=== PATIENT | female | born 1950 | race Caucasian/White ===

== ENCOUNTER → 2017-01-03 | Outpatient (CLI) | payer MEDICARE, OTHER | END | disposition home or self-care (01) | LOC: LABWHC1 15:23 | PROVIDERS: ATTEND Internal Medicine Interventional Cardiology | DX: E03.9 Hypothyroidism, unspecified (principal); I25.10 Atherosclerotic heart disease of native coronary artery without angina pectoris | CPT/HCPCS: 36415; 84439; 84443 ==

== ENCOUNTER 2018-12-10 14:25 | Observation (INO) | payer MEDICARE, OTHER ==
--- NOTE | 2018-12-10 15:19 | ED ---
General Adult HPI - General Chief complaint: Chest Pain Stated complaint: upper back heaviness,HAD chest pain into right arm Time Seen by Provider: 12/10/18 15:07 Source: patient, RN notes reviewed, old records reviewed Mode of arrival: wheelchair Limitations: no limitations - History of Present Illness Initial comments: 60-year-old female presented for evaluation of chest pain. Patient has no pain with time my evaluation. She had an episode of chest pain that began as right sided, travel into her right axilla and ultimately into the patient's back. She has history of CAD, status post bypass as well as multiple stents. She denies any diaphoresis, denies nausea. She had only mild left-sided chest pain , no central chest pain, no symptoms in her jaw, no symptoms in her left arm. She is pain-free at the time my evaluation. No history of aneurysm, no history of DVT or PE. She does report some mild dyspnea with exertion over the past several weeks. No fever or chills. No cough. - Related Data Home Medications Medication Instructions Recorded Confirmed Glimepiride [Amaryl] 4 mg PO QAM 03/08/16 12/10/18 Aspirin [[place] Aspirin EC] 81 mg PO BID 12/10/18 12/10/18 Atorvastatin [Lipitor] 40 mg PO HS 12/10/18 12/10/18 Glimepiride [Amaryl] 2 mg PO HS 12/10/18 12/10/18 Latanoprost/Pf [Latanoprost 0.005% 1 drop BOTH EYES HS 12/10/18 12/10/18 Eye Drop] Levothyroxine Sodium [Synthroid] 25 mcg PO QAM 12/10/18 12/10/18 Losartan Potassium [Cozaar] 25 mg PO HS 12/10/18 12/10/18 Allergies Allergy/AdvReac Type Severity Reaction Status Date / Time codeine Allergy "felt like Verified 12/10/18 15:39 I was having a heart attack" diphenhydramine HCl Allergy "my feet Verified 12/10/18 15:39 [From Benadryl] were running, and hands digging during heart cath" Penicillins Allergy Swelling/hi Verified 12/10/18 15:39 ves Fcgzhmw-Boj-Baf Reductase AdvReac muscle pain Verified 12/10/18 15:39 Inhibitor silk surgical tape Allergy blisters Uncoded 03/11/16 15:11 skin Review of Systems ROS Statement: Those systems with pertinent positive or pertinent negative responses have been documented in the HPI. ROS Other: All systems not noted in ROS Statement are negative. Past Medical History Past Medical History: Coronary Artery Disease (CAD), Diabetes Mellitus, Hyperlipidemia, Hypertension Additional Past Medical History / Comment(s): healing rt groin puncture, "blisters labia area thinks herpes",poor vision rt eye-receives injection monthly to reduce swelling around cornea,states is unable to tolerate statins, HX OF ALOPECIA History of Any Multi-Drug Resistant Organisms: None Reported Past Surgical History: Appendectomy, Bariatric Surgery, Cholecystectomy, Heart Catheterization With Stent, Hysterectomy, Tonsillectomy Additional Past Surgical History / Comment(s): gastric bypass,stents x4,susie eye surgery. PT STATES ON ADMISSION TO [facility] THAT HER LEFT FOOT HAS BEEN SORE ON THE LATERAL ASPECT; NO BRUISING OR REDDNESS. Past Anesthesia/Blood Transfusion Reactions: Previous Problems w/ Anesthesia Additional Past Anesthesia/Blood Transfusion Reaction / Comment(s): took along time to come out of bariatric surgery Date of Last Stent Placement:: 2005? Past Psychological History: Anxiety Smoking Status: Never smoker Past Alcohol Use History: None Reported Past Drug Use History: None Reported - Past Family History Father Family Medical History: Cancer, Myocardial Infarction ([place]) Additional Family Medical History / Comment(s): CABG Mother Family Medical History: No Reported History Brother(s) Family Medical History: Myocardial Infarction ([place]) Additional Family Medical History / Comment(s): [place] in early 40's, states "heart functioning at 20%" General Exam Limitations: no limitations General appearance: alert, in no apparent distress Head exam: Present: atraumatic, normocephalic Eye exam: Present: normal appearance, PERRL ENT exam: Present: normal exam Neck exam: Present: normal inspection. Absent: tenderness, meningismus Respiratory exam: Present: normal lung sounds bilaterally. Absent: respiratory distress, wheezes Cardiovascular Exam: Present: regular rate, normal rhythm, systolic murmur GI/Abdominal exam: Present: soft. Absent: distended, tenderness Extremities exam: Present: normal inspection, normal capillary refill. Absent: pedal edema Neurological exam: Present: alert, oriented X3, CN II-XII intact. Absent: motor sensory deficit Psychiatric exam: Present: normal affect, normal mood Skin exam: Present: warm, dry, intact. Absent: cyanosis, diaphoretic Course Vital Signs 12/10/18 14:32 Temperature 98 F Pulse Rate 64 Respiratory 18 Rate Blood Pressure 178/81 O2 Sat by Pulse 100 Oximetry EKG Findings - EKG Comments: EKG Findings:: EKG: Normal sinus rhythm, rate of 68, MS interval 178, QRS duration 94, QTC 442, T-wave inversion inferior leads, no ST segment elevation Medical Decision Making - Medical Decision Making 68-year-old female presenting with chest pain, predominantly right-sided, she did have mild left-sided chest pain as well. Radiated to the right axilla. Patient chest pain-free at the time my evaluation. She has EKG with no ST segment elevation or depression. Chest x-ray negative for pneumothorax, no acute cardiopulmonary findings. Normal CBC, normal CMP, creatinine 1.1, troponin negative. Patient will be kept in observation for telemetry, repeat cardiac enzymes, and cardiology consultation. Discussed with admitting physician, who will accept - Lab Data Result diagrams: 12/10/18 14:59 12/10/18 14:59 Lab Results 12/10/18 12/10/18 12/10/18 Range/Units 14:59 14:59 14:59 WBC 6.1 (3.8-10.6) k/uL RBC 4.56 (3.80-5.40) m/uL Hgb 13.3 (11.4-16.0) gm/dL Hct 40.5 (34.0-46.0) % MCV 88.8 (80.0-100.0) fL MCH 29.2 (25.0-35.0) pg MCHC 32.9 (31.0-37.0) g/dL RDW 14.1 (11.5-15.5) % Plt Count 208 (150-450) k/uL Neutrophils % 69 % Lymphocytes % 21 % Monocytes % 5 % Eosinophils % 3 % Basophils % 1 % Neutrophils # 4.2 (1.3-7.7) k/uL Lymphocytes # 1.3 (1.0-4.8) k/uL Monocytes # 0.3 (0-1.0) k/uL Eosinophils # 0.2 (0-0.7) k/uL Basophils # 0.0 (0-0.2) k/uL PT (9.0-12.0) sec INR (<1.2) APTT (22.0-30.0) sec Sodium 141 (137-145) mmol/L Potassium 5.1 (3.5-5.1) mmol/L Chloride 105 (98-107) mmol/L Carbon Dioxide 30 (22-30) mmol/L Anion Gap 6 mmol/L BUN 30 H (7-17) mg/dL Creatinine 1.10 H (0.52-1.04) mg/dL Est GFR (CKD-EPI)AfAm 60 (>60 ml/min/1.73 sqM) Est GFR (CKD-EPI)NonAf 52 (>60 ml/min/1.73 sqM) Glucose 209 H (74-99) mg/dL Calcium 9.4 (8.4-10.2) mg/dL Magnesium 1.8 (1.6-2.3) mg/dL Total Bilirubin 0.5 (0.2-1.3) mg/dL AST 19 (14-36) U/L ALT 35 (9-52) U/L Alkaline Phosphatase 122 (38-126) U/L Total Creatine Kinase 30 (30-135) U/L CK-MB (CK-2) <0.2 (0.0-2.4) ng/mL CK-MB (CK-2) Rel Index Troponin I <0.012 (0.000-0.034) ng/mL NT-Pro-B Natriuret Pep pg/mL Total Protein 6.8 (6.3-8.2) g/dL Albumin 3.8 (3.5-5.0) g/dL 12/10/18 12/10/18 Range/Units 14:59 14:59 WBC (3.8-10.6) k/uL RBC (3.80-5.40) m/uL Hgb (11.4-16.0) gm/dL Hct (34.0-46.0) % MCV (80.0-100.0) fL MCH (25.0-35.0) pg MCHC (31.0-37.0) g/dL RDW (11.5-15.5) % Plt Count (150-450) k/uL Neutrophils % % Lymphocytes % % Monocytes % % Eosinophils % % Basophils % % Neutrophils # (1.3-7.7) k/uL Lymphocytes # (1.0-4.8) k/uL Monocytes # (0-1.0) k/uL Eosinophils # (0-0.7) k/uL Basophils # (0-0.2) k/uL PT 10.3 (9.0-12.0) sec INR 1.0 (<1.2) APTT 23.3 (22.0-30.0) sec Sodium (137-145) mmol/L Potassium (3.5-5.1) mmol/L Chloride (98-107) mmol/L Carbon Dioxide (22-30) mmol/L Anion Gap mmol/L BUN (7-17) mg/dL Creatinine (0.52-1.04) mg/dL Est GFR (CKD-EPI)AfAm (>60 ml/min/1.73 sqM) Est GFR (CKD-EPI)NonAf (>60 ml/min/1.73 sqM) Glucose (74-99) mg/dL Calcium (8.4-10.2) mg/dL Magnesium (1.6-2.3) mg/dL Total Bilirubin (0.2-1.3) mg/dL AST (14-36) U/L ALT (9-52) U/L Alkaline Phosphatase (38-126) U/L Total Creatine Kinase (30-135) U/L CK-MB (CK-2) (0.0-2.4) ng/mL CK-MB (CK-2) Rel Index Troponin I (0.000-0.034) ng/mL NT-Pro-B Natriuret Pep 70 pg/mL Total Protein (6.3-8.2) g/dL Albumin (3.5-5.0) g/dL Disposition Clinical Impression: Chest pain Disposition: ADMITTED IP TO THIS [facility] Condition: Stable Is patient prescribed a controlled substance at d/c from ED?: No Referrals: Trung Hatch DO [Primary Care Provider] - 1-2 days Decision to Admit Reason: Admit from EC Decision Date: 12/10/18 Decision Time: 16:45
[2018-12-10 15:37] LABS: Basophils % (A) 1 %; Eosinophils # (A) 0.2 k/uL (0-0.7); Eosinophils % (A) 3 %; HCT 40.5 % (34.0-46.0); HGB 13.3 gm/dL (11.4-16.0); Lymphocytes # (A) 1.3 k/uL (1.0-4.8); Lymphocytes % (A) 21 %; MCH 29.2 pg (25.0-35.0); MCHC 32.9 g/dL (31.0-37.0); MCV 88.8 fL (80.0-100.0); Mean Platelet Volume 8.5; Monocytes # (A) 0.3 k/uL (0-1.0); Monocytes % (A) 5 %; Neutrophils # (A) 4.2 k/uL (1.3-7.7); Neutrophils % (A) 69 %; Platelet Count 208 k/uL (150-450); RBC 4.56 m/uL (3.80-5.40); RDW 14.1 % (11.5-15.5); WBC 6.1 k/uL (3.8-10.6)
[2018-12-10 15:44] LABS: Partial Thromboplastin Time 23.3 sec (22.0-30.0); Prothrombin Time 10.3 sec (9.0-12.0)
[2018-12-10 15:49] LABS: Albumin 3.8 g/dL (3.5-5.0); Calcium 9.4 mg/dL (8.4-10.2); Magnesium 1.8 mg/dL (1.6-2.3); Potassium 5.1 mmol/L (3.5-5.1); Total Bilirubin 0.5 mg/dL (0.2-1.3); Total Protein 6.8 g/dL (6.3-8.2)
[2018-12-10 16:02] LABS: Creatine Kinase 30 U/L (30-135)
--- NOTE | 2018-12-10 16:04 | XR ---
EXAMINATION TYPE: XR chest 2V DATE OF EXAM: 12/10/2018 COMPARISON: 03/19/2016 HISTORY: Shortness of breath TECHNIQUE: Frontal and lateral views of the chest are obtained. FINDINGS: Scattered senescent parenchymal changes noted. Hyperinflation compatible with COPD. No evidence for infiltrate. No evidence for atelectasis. Heart size is stable. Mediastinal structures are stable and grossly unremarkable. No evidence for hilar prominence. Degenerative changes dorsal spine. IMPRESSION: 1. No evidence for acute pulmonary disease.
[2018-12-10 16:15] LABS: Creatine Kinase MB <0.2 ng/mL (0.0-2.4); Troponin I <0.012 ng/mL (0.000-0.034)
[2018-12-10] MEDS ORDERED: SODIUM CHLORIDE 0.9% 500 ML 500 ML IV ONE (16:35)
[2018-12-10] MEDS ORDERED: LOSARTAN 50 MG TAB PO STA (16:35)
[2018-12-10] MEDS ORDERED: ASPIRIN 325 MG TAB PO STA (16:35)
[2018-12-10] MEDS ORDERED: ONDANSETRON 4 MG/2 ML VIAL IVP PRN (16:41)
[2018-12-10] MEDS ORDERED: NALOXONE 0.4 MG/ML 1 ML VIAL IV PRN (16:41)
[2018-12-10] MEDS ORDERED: NITROGLYCERIN SL TABS 0.4 MG TAB SUBLINGUAL PRN (16:43)
[2018-12-10] MEDS ORDERED: ACETAMINOPHEN TAB 325 MG TAB PO PRN (17:36)
[2018-12-10] MEDS ORDERED: HYDROcodone/APAP 5-325MG 1 EACH TAB PO PRN (17:36)
[2018-12-10] MEDS ORDERED: MORPHINE SULFATE 2 MG/ML SYRINGE IV PRN (17:36)
--- NOTE | 2018-12-10 18:07 | P.HPIM ---
History of Present Illness H&P Date: 12/10/18 Chief Complaint: Chest pain 60-year-old female with PMH of CAD status post CABG in 2016, multiple stents placed, diabetes mellitus, hypertension presents to the ED for chest pain. Patient states that she was attempting to hang a calendar on the wall when she experienced sudden onset of right-sided chest pain. Patient reports that the pain radiated to the crease of her right armpit. The pain lasted for 20 seconds , described as sharp and stabbing. Following the resolution of her chest pain, patient endorsed twinges in her right arm and started experiencing "cold ache" in her back, prompting her to come to the ED. Pain is 8 out of 10 in severity. Pain is not aggravated with deep inspiration or movement. Patient reports one episode of dyspnea, when singing happy birthday to her sister on the way to the hospital. 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 WHIT Ovalle. She has previously underwent 3-4 stents and CABG in 2016. She denies any nausea, vomiting, fever, palpitations, changes in urination. No changes in appetite or weight. Of note, patient reports history of constipation, last bowel movement 4 days ago. Patient does report intermittent lower extremity edema, at the site where they stripped her veins for CABG. In the ED, vital signs are stable. CBC and coagulation panel was unremarkable. CMP showed a BUN of 30 and creatinine of 1.10. Glucose was 209. Initial troponin was less than 0.012, EKG showed normal sinus rhythm. BNP was 70. Chest x-ray was negative for acute process. Patient is admitted for chest pain , rule out acute coronary syndrome. Cardiology is on consult. Review of Systems All systems: negative Past Medical History Past Medical History: Coronary Artery Disease (CAD), Diabetes Mellitus, Hyperlipidemia, Hypertension Additional Past Medical History / Comment(s): healing rt groin puncture, "blisters labia area thinks herpes",poor vision rt eye-receives injection monthly to reduce swelling around cornea,states is unable to tolerate statins, HX OF ALOPECIA History of Any Multi-Drug Resistant Organisms: None Reported Past Surgical History: Appendectomy, Bariatric Surgery, Cholecystectomy, Heart Catheterization With Stent, Hysterectomy, Tonsillectomy Additional Past Surgical History / Comment(s): gastric bypass,stents x4,susie eye surgery. PT STATES ON ADMISSION TO PREOP THAT HER LEFT FOOT HAS BEEN SORE ON THE LATERAL ASPECT; NO BRUISING OR REDDNESS. Past Anesthesia/Blood Transfusion Reactions: Previous Problems w/ Anesthesia Additional Past Anesthesia/Blood Transfusion Reaction / Comment(s): took along time to come out of bariatric surgery Date of Last Stent Placement:: 2005? Past Psychological History: Anxiety Smoking Status: Never smoker Past Alcohol Use History: None Reported Past Drug Use History: None Reported - Past Family History Father Family Medical History: Cancer, Myocardial Infarction ([place]) Additional Family Medical History / Comment(s): CABG Mother Family Medical History: No Reported History Brother(s) Family Medical History: Myocardial Infarction ([place]) Additional Family Medical History / Comment(s): [place] in early 40's, states "heart functioning at 20%" Medications and Allergies Home Medications Medication Instructions Recorded Confirmed Type Glimepiride [Amaryl] 4 mg PO QAM 03/08/16 12/10/18 History Aspirin [[place] Aspirin EC] 81 mg PO BID 12/10/18 12/10/18 History Atorvastatin [Lipitor] 40 mg PO HS 12/10/18 12/10/18 History Glimepiride [Amaryl] 2 mg PO HS 12/10/18 12/10/18 History Latanoprost/Pf [Latanoprost 0.005% 1 drop BOTH EYES HS 12/10/18 12/10/18 History Eye Drop] Levothyroxine Sodium [Synthroid] 25 mcg PO QAM 12/10/18 12/10/18 History Losartan Potassium [Cozaar] 25 mg PO HS 12/10/18 12/10/18 History Allergies Allergy/AdvReac Type Severity Reaction Status Date / Time codeine Allergy "felt like Verified 12/10/18 15:39 I was having a heart attack" diphenhydramine HCl Allergy "my feet Verified 12/10/18 15:39 [From Benadryl] were running, and hands digging during heart cath" Penicillins Allergy Swelling/hi Verified 12/10/18 15:39 ves Tzwuknv-Vcd-Dmo Reductase AdvReac muscle pain Verified 12/10/18 15:39 Inhibitor silk surgical tape Allergy blisters Uncoded 03/11/16 15:11 skin Physical Exam Vitals: Vital Signs Temp Pulse Resp BP Pulse Ox 12/10/18 14:32 98 F 64 18 178/81 100 Intake and Output 12/10/18 12/10/18 12/10/18 06:59 14:59 22:59 Other: Weight 99.337 kg General: [non toxic], [no distress], [appears at stated age] Derm: [warm], [dry] Head: [atraumatic], [normocephalic], [symmetric] Eyes: [EOMI], [no lid lag], [anicteric sclera] Mouth: [no lip lesion], [mucus membranes moist] Cardiovascular: [S1S2 reg], [no murmur], [positive posterior tibial pulse bilateral], [nontender to palpation] Lungs: [CTA bilateral], [no rhonchi, no rales] , [no accessory muscle use] Abdominal: [soft], [ nontender to palpation], [no guarding], [no appreciable organomegaly] Ext: [no gross muscle atrophy], [no edema], [no contractures] Neuro: [no focal neuro deficits] Psych: [Alert], [oriented], [appropriate affect] Results CBC & Chem 7: 12/10/18 14:59 12/10/18 14:59 Labs: Abnormal Lab Results - Last 24 Hours (Table) 12/10/18 Range/Units 14:59 BUN 30 H (7-17) mg/dL Creatinine 1.10 H (0.52-1.04) mg/dL Glucose 209 H (74-99) mg/dL Thrombosis Risk Factor Assmnt - Choose All That Apply Any of the Below Risk Factors Present?: Yes Each Factor Represents 1 point: Obesity (BMI >25) Other Risk Factors: Yes Each Risk Factor Represents 2 Points: Age 61-74 years Thrombosis Risk Factor Assessment Total Risk Factor Score: 3 Thrombosis Risk Factor Assessment Level: Moderate Risk Assessment and Plan Assessment: Assessment and Plan 1. Chest pain likely musculoskeletal, rule out acute coronary syndrome 2. Diabetes mellitus 3. CAD status post CABG 4. Hypertension 5. Elevated BUN and creatinine 6. Hypothyroidism 7. DVT and GI prophylaxis 1. Patient reported previous tenderness to palpation, likely musculoskeletal in nature but patient with risk factors for ACS. Troponin is less than 0.01, EKG showing normal sinus rhythm. Chest x-ray is negative for acute process. We will trend 2 troponins and EKG to rule out acute coronary syndrome. Will follow echocardiogram results. Cardiology consulted. Pain management with Tylenol, Naubinway or morphine as needed. Nitrostat sublingual as needed for chest pain. Continue aspirin 325 mg by mouth daily, Lipitor 40 mg by mouth at bedtime. Telemetry monitoring. 2. Noscz-ay-pcpt glucose 209. Insulin sliding scale. Regular Accu-Cheks. Hypoglycemic precautions. 3. Continue aspirin and Lipitor. Patient reports beta jeannette and HAWK inhibitor discontinued by cardiology. Will follow cardiology recommendations. 4. BP 178/81. Continue losartan 25 mg by mouth at bedtime. Monitor vitals, adjust medications as necessary. 5. BUN 30, creatinine 1.10. Likely secondary to dehydration. Continue normal saline at 70 mL per hour. Daily BMP. 6. Stable. Continue Synthroid 25 g by mouth every morning. 7. SCD boots only. Patient admitted for chest pain, rule out acute coronary syndrome. Cardiology is on consult. Patient is high risk. Possible discharge tomorrow if workup benign.
[2018-12-10] MEDS ORDERED: LOSARTAN 25 MG TAB PO SCH (21:00)
[2018-12-10] MEDS ORDERED: GLIMEPIRIDE 2 MG TAB PO SCH (21:00)
[2018-12-10 22:11] LABS: Creatine Kinase 32 U/L (30-135)
[2018-12-10 22:24] LABS: Creatine Kinase MB <0.2 ng/mL (0.0-2.4); Troponin I <0.012 ng/mL (0.000-0.034)
[2018-12-10] MEDS: SODIUM CHLORIDE 0.9% 1,000 ML IV SCH (22:42)
[2018-12-10] MEDS: ATORVASTATIN 40 MG TAB PO SCH (22:42)
[2018-12-10] MEDS: ASPIRIN 81 MG PO SCH (22:42)
[2018-12-10 23:39] LABS: Glucose,Whole Blood 246 mg/dL (75-99)
[2018-12-11 03:30] LABS: Creatine Kinase 26 U/L (30-135)
[2018-12-11 03:43] LABS: Creatine Kinase MB 0.4 ng/mL (0.0-2.4); Troponin I <0.012 ng/mL (0.000-0.034)
[2018-12-11] MEDS: SODIUM CHLORIDE 0.9% 1,000 ML IV SCH ×2 (06:04→19:31)
[2018-12-11] MEDS: LEVOTHYROXINE 25 MCG TAB PO SCH (06:09)
[2018-12-11 06:44] LABS: Glucose,Whole Blood 139 mg/dL (75-99)
[2018-12-11] MEDS ORDERED: REGADENOSON 0.4 MG/5 ML SYRINGE IV ONE (08:56)
[2018-12-11] MEDS ORDERED: CAFFEINE CITRATE 60 MG/3 ML VIAL IV PRN (08:56)
[2018-12-11] MEDS: INSULIN ASPART (NovoLOG) 100 UNIT/ML VIAL SQ SCH ×3 (09:07→16:44)
--- NOTE | 2018-12-11 10:26 | ECHOF ---
Referral Reason:Chest pain MEASUREMENTS -------- HEIGHT: 154.9 cm WEIGHT: 99.3 kg BP: 131/70 IVSd: 1.0 cm (0.6 - 1.1) LVIDd: 4.3 cm (3.9 - 5.3) LVPWd: 0.9 cm (0.6 - 1.1) IVSs: 1.9 cm LVIDs: 2.5 cm LVPWs: 1.6 cm LAESV Index (A-L): 22.20 ml/m Ao Diam: 2.8 cm (2.0 - 3.7) AV Cusp: 2.1 cm (1.5 - 2.6) LA Diam: 4.0 cm (2.7 - 3.8) MV EXCURSION: 12.148 mm (> 18.000) MV EF SLOPE: 52 mm/s (70 - 150) EPSS: 0.8 cm MV E Cedric: 1.00 m/s MV DecT: 176 ms MV A Cedric: 1.01 m/s MV E/A Ratio: 0.99 RAP: 5.00 mmHg RVSP: 22.93 mmHg FINDINGS -------- Sinus rhythm. This was a technically difficult study with suboptimal views. The left ventricular size is normal. Left ventricular wall thickness is normal. Overall left vent ricular systolic function is mildly impaired with, an EF between 45 - 50 %. There is paradoxical/dy synergic septal motion consistent with post-operative status. Basal inferior LV wall motion is hypo kinetic. The right ventricle is normal in size. The left atrium is normal in size. The right atrium is normal in size. Lumason used Aortic valve is trileaflet and is mildly thickened. Trace amount of aortic regurgitation. The mitral valve leaflets are mildly thickened. Mild mitral annular calcification present. Mild m itral regurgitation is present. Mild tricuspid regurgitation present. The right ventricular systolic pressure, as measured by Doppl er, is 22.93mmHg. Pulmonic valve appears structurally normal. The aortic root size is normal. The pericardium is normal. CONCLUSIONS -------- 1. Sinus rhythm. 2. This was a technically difficult study with suboptimal views. 3. The left ventricular size is normal. 4. Left ventricular wall thickness is normal. 5. Overall left ventricular systolic function is mildly impaired with, an EF between 45 - 50 %. 6. There is paradoxical/dysynergic septal motion consistent with post-operative status. 7. Basal inferior LV wall motion is hypokinetic. 8. The right ventricle is normal in size. 9. The left atrium is normal in size. 10. The right atrium is normal in size. 11. Lumason used 12. Aortic valve is trileaflet and is mildly thickened. 13. Trace amount of aortic regurgitation. 14. The mitral valve leaflets are mildly thickened. 15. Mild mitral annular calcification present. 16. Mild mitral regurgitation is present. 17. Mild tricuspid regurgitation present. 18. The right ventricular systolic pressure, as measured by Doppler, is 22.93mmHg. 19. Pulmonic valve appears structurally normal. 20. The aortic root size is normal. 21. The pericardium is normal. ROLL CUTTER: Christine Middleton RDCS
[2018-12-11 12:06] LABS: Glucose,Whole Blood 146 mg/dL (75-99)
--- NOTE | 2018-12-11 12:09 | NM ---
"EXAMINATION TYPE: NM stress lexiscan cardiolite DATE OF EXAM: 12/11/2018 COMPARISON: NONE HISTORY: Chest pain with history of hypertension, diabetes, prior 4 vessel angioplasty, prior. Bib[place] lar CABG 3 years ago, hypercholesteremia, and family history of heart disease and at TECHNIQUE: After the intravenous administration of 9.81 mCi Tc 99m Sestamibi - Cardiolite resting SP ECT images acquired 50 minutes post injection. The patient received 0.4mg Lexiscan, 26 mCi Tc 99m Sestamibi - Stress images obtained 45 minutes post injection FINDINGS: Review of stress and rest SPECT images demonstrates large area of diminished color intensity involvin g the lateral and inferior left ventricular wall on stress images versus rest images and persists on all 3 planes most prominent base to mid segments but also some apical and septal involvement in which acute ischemia cannot be excluded. Gated analysis shows areas of hypokinesis with overall ejection fraction of 32%, diminished from the normal range. IMPRESSION: Abnormal study, areas of reversible ischemia cannot be excluded. Consider direct catheter angiogram evaluation. A Yellow level critical message alert has been initiated for Mingo Harvey MD via the [employer] 36 0 | Critical Results System on 12/11/2018 12:06 PM. This message alert has been sent to Mingo Harvey MD via the preferences provided by the clinician for the receipt of Radiology Critical Findings. [facility] [id number]."
[2018-12-11] MEDS: ASPIRIN 81 MG PO SCH ×2 (12:27→19:44)
[2018-12-11] MEDS: LOSARTAN 50 MG TAB PO SCH (12:27)
--- NOTE | 2018-12-11 12:36 | EST ---
EXERCISE STRESS AGE: 68 SEX: F HT: 5'1" WT: 219 PROTOCOL: Lexiscan Cardiolite Stress Test HEART RATE REST: 71 BLOOD PRESSURE REST: 164/88 MAXIMUM HEART RATE ACHIEVED: 104 MAXIMUM BLOOD PRESSURE: 164/88 INDICATIONS: Chest pain. CLINICAL INFORMATION: Baseline EKG shows sinus rhythm, normal axis, normal intervals. Patient was given intravenous Lexiscan as per protocol. Did not have chest pain or diagnostic ST-segment depression. CONCLUSION: 1. Negative stress test by EKG criteria. 2. Cardiolite portion of the stress test was reported separately. MMODL / IJN: [id number] /
--- NOTE | 2018-12-11 13:00 | P.CRDCN ---
History of Present Illness History of present illness: This is a pleasant 68-year-old female past medical history significant for coronary artery disease s/p bypass grafting 2016, hypertension, dyslipidemia, morbid obesity and diabetes mellitus. She follows in the office with Dr. Ovalle. We have been asked to see her in consultation for chest pain. She states yesterday at home she was reaching up to move her calendar with both arms and she felt an acute sharp pain in the right anterior chest wall that lasted approximately 20 seconds. The pain was very intense and strong when it came. It felt like a pick stabbing through to her back. After the initial pain in her chest she then felt an achy sensation across her back under the scapula that remained persistent all day. She waited a few hours at home before coming in for evaluation. She denies associated shortness of breath, dizziness, palpitations or diaphoresis. Blood pressure on arrival was 178/81, 151/110. She states she takes her prescribed losartan daily at bedtime. EKG reveals sinus mechanism with no acute ST or T wave abnormalities noted. Chest x-ray is negative for an acute cardiopulmonary process. Laboratory data reviewed, WBC 6.1, hemoglobin 13.3, platelets 208, sodium 141, potassium 5.1, magnesium 1.8, creatinine 1.1, cardiac enzymes negative 3, NTproBNP 70. Current cardiac medications include atorvastatin 40 mg daily, losartan 25 mg daily and aspirin 81 mg twice a day. Most recent echocardiogram December 2015 reveals preserved left ventricular systolic function with ejection fraction 55%, mildly dilated left ventricle with mild pulmonary hypertension. 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 She underwent bypass surgery 2015 with a BURKETT to LAD, SVG to ramus, SVG to OM and 2 sequential grafts to the PDA and PLV branches of the RCA. She also underwent multi-vessel PCI in 2004 & 2005 involving the LAD and RCA prior to bypass surgery. At the time of my exam: CONSTITUTIONAL: Denies fever. Denies chills. EYES: Denies blurred vision. Denies vision changes. Denies eye pain. EARS, NOSE, MOUTH & THROAT: Denies headache. Denies sore throat. Denies ear pain. CARDIOVASCULAR: Denies chest pain. Denies shortness of breath. Denies orthopnea. Denies PND. Denies palpitations. RESPIRATORY: Denies cough. GASTROINTESTINAL: Denies abdominal pain. Denies diarrhea. Denies constipation. Denies nausea. Denies vomiting. MUSCULOSKELETAL: Complains of achy sensation to mid back. INTEGUMENTARY: Denies pruitis. Denies rash. NEUROLOGIC: Denies numbness. Denies tingling. Denies weakness. PSYCHIATRIC: Denies anxiety. Denies depression. ENDOCRINE: Denies fatigue. Denies weight change. Denies polydipsia. Denies polyurina. GENITOURINARY: Denies burning, hematuria or urgency with micturation. HEMATOLOGIC: Denies history of anemia. Denies bleeding. Blood pressure 159/79 heart rate 67 afebrile maintaining oxygen saturation on room air GENERAL: This is a 68-year-old female in no apparent distress at the time of my examination. HEENT: Head is atraumatic, normocephalic. Pupils are equal, round. Sclerae anicteric. Conjunctivae are clear. Mucous membranes of the mouth are moist. Neck is supple. There is no jugular venous distention. No carotid bruit is heard. LUNGS: Clear to auscultation no wheezes, rales or rhonchi. No chest wall tenderness is noted on palpation or with deep breathing. HEART: Regular rate and rhythm without murmurs, rubs or gallops. S1 and S2 heard. ABDOMEN: Soft, nontender. Bowel sounds are heard. No organomegaly noted. EXTREMITIES: No evidence of peripheral edema and no calf tenderness noted. VASCULAR: Radial and dorsalis pedis pulses palpated, no evidence of clubbing. NEUROLOGIC: Patient is awake, alert and oriented x3. ASSESSMENT Chest pain, atypical for angina. An acute event has been ruled out. Hypertension, uncontrolled History of coronary artery disease s/p bypass grafting 2016 Diabetes mellitus Dyslipideima PLAN Obtain 2D echocardiogram and doppler study to assess cardiac structure and function. Perform Lexiscan stress test to assess for reversible cardiac ischemia. Increase losartan to 100 mg daily. If stress test is normal she is stable from a cardiac perspective, if abnormal we will consider coronary angiography. Thank you kindly for this consultation. Nurse Practitioner note has been reviewed, I agree with a documented findings and plan of care. Patient was seen and examined. Past Medical History Past Medical History: Coronary Artery Disease (CAD), Diabetes Mellitus, Hyperlipidemia, Hypertension, Thyroid Disorder Additional Past Medical History / Comment(s): gets occ outbreaks on labia and thinks it may be herpes but never dx- last outbreak few weeks ago",poor vision more the rt eye.-receives injection monthly to reduce swelling around cornea, HX OF ALOPECIA- pt told thyroid levels were low normal but placed on meds, galucoma both eyes, diabetic retinopathy susie,uti, History of Any Multi-Drug Resistant Organisms: None Reported Past Surgical History: Appendectomy, Bariatric Surgery, Cholecystectomy, Coronary Bypass/CABG, Heart Catheterization With Stent, Hysterectomy, Tonsillectomy Additional Past Surgical History / Comment(s): gastric bypass-arlene en y,stents x4,susie eye surgery. eye injections Past Anesthesia/Blood Transfusion Reactions: Previous Problems w/ Anesthesia Additional Past Anesthesia/Blood Transfusion Reaction / Comment(s): took along time to come out of bariatric surgery Date of Last Stent Placement:: 2005? Smoking Status: Former smoker - Past Family History Father Family Medical History: Cancer, Myocardial Infarction (CA) Additional Family Medical History / Comment(s): CABG Mother Family Medical History: No Reported History Brother(s) Family Medical History: Myocardial Infarction (CA) Additional Family Medical History / Comment(s): CA in early 40's, states "heart functioning at 20%" Medications and Allergies Home Medications Medication Instructions Recorded Confirmed Type Glimepiride [Amaryl] 4 mg PO QAM 03/08/16 12/10/18 History Aspirin [[place] Aspirin EC] 81 mg PO BID 12/10/18 12/10/18 History Atorvastatin [Lipitor] 40 mg PO HS 12/10/18 12/10/18 History Glimepiride [Amaryl] 2 mg PO HS 12/10/18 12/10/18 History Latanoprost/Pf [Latanoprost 0.005% 1 drop BOTH EYES HS 12/10/18 12/10/18 History Eye Drop] Levothyroxine Sodium [Synthroid] 25 mcg PO QAM 12/10/18 12/10/18 History Losartan Potassium [Cozaar] 25 mg PO HS 12/10/18 12/10/18 History Allergies Allergy/AdvReac Type Severity Reaction Status Date / Time codeine Allergy "felt like Verified 12/10/18 15:39 I was having a heart attack" diphenhydramine HCl Allergy "my feet Verified 12/10/18 15:39 [From Benadryl] were running, and hands digging during heart cath" Penicillins Allergy Swelling/hi Verified 12/10/18 15:39 ves Qxyvefc-Qem-Doe Reductase AdvReac muscle pain Verified 12/10/18 15:39 Inhibitor silk surgical tape Allergy blisters Uncoded 03/11/16 15:11 skin Physical Exam Vitals: Vital Signs Temp Pulse Pulse Resp BP BP Pulse Ox 12/11/18 07:49 97.6 F 67 18 159/79 98 12/11/18 04:01 98.4 F 62 16 131/70 98 12/11/18 03:28 65 17 12/10/18 23:58 97.7 F 63 16 166/76 99 12/10/18 23:30 63 17 12/10/18 21:45 98.2 F 61 16 175/89 99 12/10/18 21:00 61 18 175/79 100 12/10/18 20:30 57 L 18 183/76 12/10/18 20:00 60 61 16 179/60 12/10/18 19:30 60 18 170/71 12/10/18 19:00 56 L 24 168/68 98 12/10/18 18:30 58 L 18 155/51 100 12/10/18 18:00 60 12 184/75 100 12/10/18 17:00 60 13 177/83 96 12/10/18 16:30 61 13 170/77 99 12/10/18 15:30 60 13 151/110 99 12/10/18 15:10 19 12/10/18 14:32 98 F 64 18 178/81 100 Intake and Output 12/10/18 12/11/18 12/11/18 22:59 06:59 14:59 Other: Voiding Method Toilet Toilet # Voids 1 1 Results 12/10/18 14:59 12/10/18 14:59 Cardiac Enzymes 12/10/18 12/10/18 12/10/18 Range/Units 14:59 14:59 21:11 AST 19 (14-36) U/L CK-MB (CK-2) <0.2 <0.2 (0.0-2.4) ng/mL Troponin I <0.012 <0.012 (0.000-0.034) ng/mL 12/11/18 Range/Units 02:55 AST (14-36) U/L CK-MB (CK-2) 0.4 (0.0-2.4) ng/mL Troponin I <0.012 (0.000-0.034) ng/mL Coagulation 12/10/18 Range/Units 14:59 PT 10.3 (9.0-12.0) sec APTT 23.3 (22.0-30.0) sec CBC 12/10/18 Range/Units 14:59 WBC 6.1 (3.8-10.6) k/uL RBC 4.56 (3.80-5.40) m/uL Hgb 13.3 (11.4-16.0) gm/dL Hct 40.5 (34.0-46.0) % Plt Count 208 (150-450) k/uL Comprehensive Metabolic Panel 12/10/18 Range/Units 14:59 Sodium 141 (137-145) mmol/L Potassium 5.1 (3.5-5.1) mmol/L Chloride 105 (98-107) mmol/L Carbon Dioxide 30 (22-30) mmol/L BUN 30 H (7-17) mg/dL Creatinine 1.10 H (0.52-1.04) mg/dL Glucose 209 H (74-99) mg/dL Calcium 9.4 (8.4-10.2) mg/dL AST 19 (14-36) U/L ALT 35 (9-52) U/L Alkaline Phosphatase 122 (38-126) U/L Total Protein 6.8 (6.3-8.2) g/dL Albumin 3.8 (3.5-5.0) g/dL Current Medications Generic Name Dose Route Start Last Admin Trade Name Freq PRN Reason Stop Dose Admin Acetaminophen 650 mg 12/10/18 17:36 Tylenol Tab PO Q6HR PRN Mild Pain or Fever > 100.5 Hydrocodone Bitart/Acetaminophen 1 each 12/10/18 17:36 [place] 5-325 PO Q4HR PRN Moderate Pain Aspirin 81 mg 12/10/18 21:00 12/10/18 22:42 Aspirin PO Not Given BID PATRICE Atorvastatin Calcium 40 mg 12/10/18 21:00 12/10/18 22:42 Lipitor PO 40 mg HS PATRICE Administration Caffeine Citrate 60 mg 12/11/18 08:56 Cafcit Inj IV 12/11/18 23:59 ONCE PRN Patient Response Sodium Chloride 1,000 mls @ 75 mls/hr 12/10/18 16:30 12/11/18 06:04 Saline 0.9% IV 75 mls/hr .[id number] PATRICE Administration Insulin Aspart 0 unit 12/11/18 07:30 12/11/18 09:07 Novolog SQ Not Given AC-TID [facility] Protocol Levothyroxine Sodium 25 mcg 12/11/18 06:30 12/11/18 06:09 Synthroid PO 25 mcg QAM@0630 [facility] Administration Losartan Potassium 100 mg 12/11/18 10:57 Cozaar PO DAILY [facility] Morphine Sulfate 2 mg 12/10/18 17:36 Morphine Sulfate (Inj) IV Q4HR PRN Severe Pain Naloxone HCl 0.2 mg 12/10/18 16:41 Narcan IV Q2M PRN Opioid Reversal Nitroglycerin 0.4 mg 12/10/18 16:43 Nitrostat SUBLINGUAL Q5M PRN Chest Pain Ondansetron HCl 4 mg 12/10/18 16:41 Zofran IVP Q8HR PRN Nausea And Vomiting Intake and Output 12/10/18 12/11/18 12/11/18 22:59 06:59 14:59 Other: Voiding Method Toilet Toilet # Voids 1 1 12/10/18 14:59 12/10/18 14:59
--- NOTE | 2018-12-11 16:24 | P.PN ---
Subjective Progress Note Date: 12/11/18 Principal diagnosis: Chest pain Patient was seen and examined. No acute events overnight. Patient reports complete resolution of her chest pain. Experienced one episode of twitching in her right shoulder yesterday. She denies any shortness of breath or palpitations. Objective - Vital Signs Vital signs: Vital Signs Temp 97.6 F 12/11/18 07:49 Pulse 67 12/11/18 07:49 Resp 18 12/11/18 07:49 BP 159/79 12/11/18 07:49 Pulse Ox 98 12/11/18 07:49 Intake & Output 12/10/18 12/11/18 12/11/18 18:59 06:59 18:59 Weight 99.337 kg Other: Voiding Method Toilet # Voids 1 - Exam General: [non toxic], [no distress], [appears at stated age] Derm: [warm], [dry] Head: [atraumatic], [normocephalic], [symmetric] Eyes: [EOMI], [no lid lag], [anicteric sclera] Mouth: [no lip lesion], [mucus membranes moist] Cardiovascular: [S1S2 reg], [no murmur], [positive posterior tibial pulse bilateral], [nontender to palpation] Lungs: [CTA bilateral], [no rhonchi, no rales] , [no accessory muscle use] Abdominal: [soft], [ nontender to palpation], [no guarding], [no appreciable organomegaly] Ext: [no gross muscle atrophy], [no edema], [no contractures] Neuro: [no focal neuro deficits] Psych: [Alert], [oriented], [appropriate affect] - Labs CBC & Chem 7: 12/10/18 14:59 12/10/18 14:59 Labs: Abnormal Lab Results - Last 24 Hours (Table) 12/10/18 12/10/18 12/11/18 Range/Units 14:59 23:35 02:55 BUN 30 H (7-17) mg/dL Creatinine 1.10 H (0.52-1.04) mg/dL Glucose 209 H (74-99) mg/dL POC Glucose (mg/dL) 246 H (75-99) mg/dL Total Creatine Kinase 26 L (30-135) U/L 12/11/18 12/11/18 Range/Units 06:43 12:04 BUN (7-17) mg/dL Creatinine (0.52-1.04) mg/dL Glucose (74-99) mg/dL POC Glucose (mg/dL) 139 H 146 H (75-99) mg/dL Total Creatine Kinase (30-135) U/L Assessment and Plan Assessment: Assessment and Plan 1. Chest pain likely musculoskeletal, rule out acute coronary syndrome 2. Diabetes mellitus 3. CAD status post CABG 4. Hypertension 5. Elevated BUN and creatinine 6. Hypothyroidism 7. DVT and GI prophylaxis 1. Patient reported previous tenderness to palpation, likely musculoskeletal in nature but patient with risk factors for ACS. Troponin is less than 0.01 x 3 , EKG showing normal sinus rhythm. Chest x-ray is negative for acute process. Echo shows EF 45-50% with basal LV hypokinesis. Cardiology consulted, Lexiscan positive. Pain management with Tylenol, [place] or morphine as needed. Nitrostat sublingual as needed for chest pain. Continue aspirin 325 mg by mouth daily, Lipitor 40 mg by mouth at bedtime. Telemetry monitoring. 2. Hdjmu-st-pthd glucose 146. Insulin sliding scale. Regular Accu-Cheks. Hypoglycemic precautions. 3. Continue aspirin and Lipitor. Patient reports beta jeannette and HAWK inhibitor discontinued by cardiology. Will follow cardiology recommendations. 4. BP 159/79. Continue losartan 25 mg by mouth at bedtime. Monitor vitals, adjust medications as necessary. 5. BUN 30, creatinine 1.10. Likely secondary to dehydration. Continue normal saline at 70 mL per hour. Daily BMP. 6. Stable. Continue Synthroid 25 g by mouth every morning. 7. SCD boots only. Stress test is positive. As per Dr. Ovalle, add Imdur and observe overnight. Will follow Cardiology recommendations.
[2018-12-11 16:32] LABS: Glucose,Whole Blood 125 mg/dL (75-99)
[2018-12-11] MEDS: ISOSORBIDE MONONITRATE ER 30 MG TAB.ER.24H PO SCH (16:55)
[2018-12-11] MEDS: ATORVASTATIN 40 MG TAB PO SCH (19:45)
[2018-12-11 20:16] LABS: Glucose,Whole Blood 164 mg/dL (75-99)
[2018-12-12] MEDS: LEVOTHYROXINE 25 MCG TAB PO SCH (06:12)
[2018-12-12 06:40] LABS: Glucose,Whole Blood 130 mg/dL (75-99)
[2018-12-12] MEDS: INSULIN ASPART (NovoLOG) 100 UNIT/ML VIAL SQ SCH ×2 (07:27→11:58)
[2018-12-12 07:54] VITALS: BP 130/74; PULSE 72; RESP 18; TEMP 97.6
[2018-12-12 08:36] LABS: Calcium 8.5 mg/dL (8.4-10.2); Potassium 4.4 mmol/L (3.5-5.1)
[2018-12-12] MEDS: ISOSORBIDE MONONITRATE ER 30 MG TAB.ER.24H PO SCH (09:08)
[2018-12-12] MEDS: LOSARTAN 50 MG TAB PO SCH (09:08)
[2018-12-12] MEDS: ASPIRIN 81 MG PO SCH (09:08)
--- NOTE | 2018-12-12 10:14 | P.DS ---
Providers Date of admission: 12/10/18 16:41 Expected date of discharge: 12/12/18 Attending physician: Henna Truong MD Consults: 12/10/18 16:42 Consult Physician Routine Consulting Provider: Mingo Harvey Consult Reason/Comments: CP Do you want consulting provider notified?: Yes Primary care physician: Trung [facility] Course: 60-year-old female with PMH of CAD status post CABG in 2016, multiple stents placed, diabetes mellitus, hypertension presents to the ED for chest pain. Patient states that she was attempting to hang a calendar on the wall when she experienced sudden onset of right-sided chest pain. Patient reports that the pain radiated to the crease of her right armpit. The pain lasted for 20 seconds , described as sharp and stabbing. Following the resolution of her chest pain, patient endorsed twinges in her right arm and started experiencing "cold ache" in her back, prompting her to come to the ED. Pain is 8 out of 10 in severity. Pain is not aggravated with deep inspiration or movement. Patient reports one episode of dyspnea, when singing happy birthday to her sister on the way to the hospital. She does have a floor tech, Dr. WHIT Ovalle. She has previously underwent 3-4 stents and CABG in 2016. She denies any nausea, vomiting, fever, palpitations, changes in urination. No changes in appetite or weight. Of note, patient reports history of constipation, last bowel movement 4 days ago. Patient does report intermittent lower extremity edema, at the site where they stripped her veins for CABG. In the ED, vital signs are stable. CBC and coagulation panel was unremarkable. CMP showed a BUN of 30 and creatinine of 1.10. Glucose was 209. Initial troponin was less than 0.012, EKG showed normal sinus rhythm. BNP was 70. Chest x-ray was negative for acute process. Patient is admitted for chest pain , rule out acute coronary syndrome. Cardiology is on consult. With regard to her chest pain, thought to be likely musculoskeletal in nature. Patient had risk factors for ACS. Troponin was less than 0.0123 with EKG showing normal sinus rhythm. Chest x-ray was negative for acute process. Echocardiogram was done which showed an ejection fraction of 45-50% with basal LV hypokinesis. Cardiology was consulted and recommended stress test. Stress test was positive. The case was discussed with cardiology and RELAY REPAIRER Sarah, Dr. Ovalle would like to see the patient on Monday in the outpatient setting, no further intervention while inpatient. Otherwise, her home medications were resumed for diabetes mellitus, CAD, hypertension and hypothyroidism. Patient did have an elevated creatinine, 1.10 on admission. Her creatinine was 1.22 on discharge. Patient reported that her creatinine is baseline slightly elevated. Patient was seen and examined prior to discharge. No acute events overnight. Patient reports resolution of her chest pain. She denies any shortness of breath or palpitations. No nausea or vomiting. This is looking forward to going home. Tearful about her positive stress test result. General: [non toxic], [no distress], [appears at stated age] Derm: [warm], [dry] Head: [atraumatic], [normocephalic], [symmetric] Eyes: [EOMI], [no lid lag], [anicteric sclera] Mouth: [no lip lesion], [mucus membranes moist] Cardiovascular: [S1S2 reg], [no murmur], [positive posterior tibial pulse bilateral], [nontender to palpation] Lungs: [CTA bilateral], [no rhonchi, no rales] , [no accessory muscle use] Abdominal: [soft], [ nontender to palpation], [no guarding], [no appreciable organomegaly] Ext: [no gross muscle atrophy], [no edema], [no contractures] Neuro: [no focal neuro deficits] Psych: [Alert], [oriented], [appropriate affect] Assessment and Plan 1. Chest pain likely musculoskeletal, rule out acute coronary syndrome 2. Diabetes mellitus 3. CAD status post CABG 4. Hypertension 5. Elevated BUN and creatinine 6. Hypothyroidism 7. DVT and GI prophylaxis 1. Patient reported previous tenderness to palpation, likely musculoskeletal in nature but patient with risk factors for ACS. Troponin is less than 0.01 x 3 , EKG showing normal sinus rhythm. Chest x-ray is negative for acute process. Echo shows EF 45-50% with basal LV hypokinesis. Cardiology consulted, Lexiscan positive. Pain management with Tylenol, [place] or morphine as needed. Nitrostat sublingual as needed for chest pain. Continue aspirin 325 mg by mouth daily, Lipitor 40 mg by mouth at bedtime. Telemetry monitoring. 2. Pxmfo-oi-rnuq glucose 236. Insulin sliding scale. Regular Accu-Cheks. Hypoglycemic precautions. 3. Continue aspirin and Lipitor. Patient reports beta jeannette and HAWK inhibitor discontinued by cardiology. Will follow cardiology recommendations. 4. BP 130/74. Continue losartan 25 mg by mouth at bedtime, Imdur 30 mg by mouth daily. Monitor vitals, adjust medications as necessary. 5. BUN 30, creatinine 1.10 to 1.33 with component of CKD. Likely secondary to dehydration. Continue normal saline at 70 mL per hour. Daily BMP. 6. Stable. Continue Synthroid 25 g by mouth every morning. 7. SCD boots only. Stress test is positive. As per Dr. Ovalle, add Imdur and observe overnight. DC to FU with Dr. Ovalle on Monday. Pertinent Studies: Chest x-ray Echocardiogram Stress test Patient Condition at Discharge: Stable Plan - Discharge Summary Discharge Rx Participant: No New Discharge Prescriptions: New Isosorbide Mononitrate ER [Imdur] 30 mg PO DAILY #30 tab.er.24h Losartan [Cozaar] 100 mg PO DAILY #60 tab Nitroglycerin Sl Tabs [Nitrostat] 0.4 mg SUBLINGUAL Q5M PRN #10 tab PRN Reason: Chest Pain Continue Glimepiride [Amaryl] 4 mg PO QAM Latanoprost/Pf [Latanoprost 0.005% Eye Drop] 1 drop BOTH EYES HS Levothyroxine Sodium [Synthroid] 25 mcg PO QAM Glimepiride [Amaryl] 2 mg PO HS Atorvastatin [Lipitor] 40 mg PO HS Aspirin [[place] Aspirin EC] 81 mg PO BID Discontinued Losartan Potassium [Cozaar] 25 mg PO HS Discharge Medication List Glimepiride [Amaryl] 4 mg PO QAM 03/08/16 [History] Aspirin [[place] Aspirin EC] 81 mg PO BID 12/10/18 [History] Atorvastatin [Lipitor] 40 mg PO HS 12/10/18 [History] Glimepiride [Amaryl] 2 mg PO HS 12/10/18 [History] Latanoprost/Pf [Latanoprost 0.005% Eye Drop] 1 drop BOTH EYES HS 12/10/18 [ History] Levothyroxine Sodium [Synthroid] 25 mcg PO QAM 12/10/18 [History] Isosorbide Mononitrate ER [Imdur] 30 mg PO DAILY #30 tab.er.24h 12/12/18 [Rx] Losartan [Cozaar] 100 mg PO DAILY #60 tab 12/12/18 [Rx] Nitroglycerin Sl Tabs [Nitrostat] 0.4 mg SUBLINGUAL Q5M PRN #10 tab 12/12/18 [Rx ] Follow up Appointment(s)/Referral(s): Trung Hatch DO [Primary Care Provider] - 1-2 days Taryn Ovalle MD [Family Provider] - 1 Week Activity/Diet/Wound Care/Special Instructions: Diet: Cardiac diet Please take all medication as advised. Please follow-up with your floor tech Dr. WHIT Ovalle on Monday. Please come to the ED or call 911 for chest pain, shortness of breath or palpitations. Discharge Disposition: HOME SELF-CARE
--- NOTE | 2018-12-12 11:00 | P.PN ---
Subjective This is a pleasant 68-year-old female past medical history significant for coronary artery disease s/p bypass grafting 2016, hypertension, dyslipidemia, morbid obesity and diabetes mellitus. She follows in the office with Dr. Ovalle. She underwent Lexiscan stress test yesterday revealing decreased attenuation involving lateral and inferior aguilar of the LV on all 3 planes most prominent base to mid segments but also apical and septal involvement. Areas of revesibility cannot be excluded. Echocardiogram revealed impaired LV systolic function with EF 45-50%, basal inferor hyokinesia, mild MR and mild TR. These results were discussed in detail with the patient as well as Dr. Ovalle and maximum medical therapy recommended. Imdur was added to her daily regimen. She received her first dose yesterday. Increased activity throughout the evening did not illicit any exertional chest pain, shortness of breath, dizziness or palpitations. She has been intolerant to beta blockers in the past and therefore these were not added. She is seen and examined sitting up in bed in no acute distress. She denies any further symptoms of chest discomfort. Blood pressure 130/74 heart rate 72 afebrile and maintaining oxygen starutaion room. She complains of an achy sensation in her lower back after waking up this morning, assured her this is not from the imdur. GENERAL: This is a 68-year-old female in no apparent distress at the time of my examination. HEENT: Head is atraumatic, normocephalic. Pupils are equal, round. Sclerae anicteric. Conjunctivae are clear. Mucous membranes of the mouth are moist. Neck is supple. There is no jugular venous distention. No carotid bruit is heard. LUNGS: Clear to auscultation no wheezes, rales or rhonchi. No chest wall tenderness is noted on palpation or with deep breathing. HEART: Regular rate and rhythm without murmurs, rubs or gallops. S1 and S2 heard. EXTREMITIES: No evidence of peripheral edema and no calf tenderness noted. ASSESSMENT Chest pain, atypical for angina. An acute event has been ruled out. Abnormal stress test reviewed, maximum medical therapy recommended by her primary chimney construction supervisor Dr. Ovalle. Hypertension, uncontrolled History of coronary artery disease s/p bypass grafting 2016 Diabetes mellitus Dyslipideima PLAN Stable from a cardiac perspective. Explained the plan to the patient in great detail and she verbalizes understanding. Prescriptions have been sent to the pharmacy and she will see Dr. Ovalle in the office Monday. Nurse Practitioner note has been reviewed, I agree with a documented findings and plan of care. Patient was seen and examined. Objective - Vital Signs Vital signs: Vital Signs Temp 97.6 F 12/12/18 07:53 Pulse 72 12/12/18 07:53 Resp 18 12/12/18 07:53 BP 130/74 12/12/18 07:53 Pulse Ox 97 12/12/18 07:53 Intake & Output 12/11/18 12/12/18 12/12/18 18:59 06:59 18:59 Intake Total 640 240 Balance 640 240 Intake: Oral 240 240 Other 400 Other: Voiding Method Toilet Toilet # Voids 1 - Labs CBC & Chem 7: 12/10/18 14:59 12/12/18 07:58 Labs: Abnormal Lab Results - Last 24 Hours (Table) 12/11/18 12/11/18 12/11/18 Range/Units 12:04 16:30 20:14 BUN (7-17) mg/dL Creatinine (0.52-1.04) mg/dL Glucose (74-99) mg/dL POC Glucose (mg/dL) 146 H 125 H 164 H (75-99) mg/dL 12/12/18 12/12/18 Range/Units 06:39 07:58 BUN 29 H (7-17) mg/dL Creatinine 1.22 H (0.52-1.04) mg/dL Glucose 236 H (74-99) mg/dL POC Glucose (mg/dL) 130 H (75-99) mg/dL
[2018-12-12 11:21] LABS: Glucose,Whole Blood 259 mg/dL (75-99)
== END 2018-12-12 12:49 | disposition home or self-care (01) ==
LOC: EC 14:25 → 1SOBS 16:41
PROVIDERS: ADMIT Family Medicine; ATTEND Family Medicine
DX: R07.89 Other chest pain (principal); R79.89 Other specified abnormal findings of blood chemistry; I10 Essential (primary) hypertension; I25.10 Atherosclerotic heart disease of native coronary artery without angina pectoris; E78.5 Hyperlipidemia, unspecified; E66.01 Morbid (severe) obesity due to excess calories; Z68.41 Body mass index [BMI] 40.0-44.9, adult; E11.319 Type 2 diabetes mellitus with unspecified diabetic retinopathy without macular edema; E03.9 Hypothyroidism, unspecified; L65.9 Nonscarring hair loss, unspecified; H40.9 Unspecified glaucoma; H54.7 Unspecified visual loss; K59.00 Constipation, unspecified; F41.9 Anxiety disorder, unspecified; I27.20 Pulmonary hypertension, unspecified; R25.3 Fasciculation; R60.0 Localized edema; Z79.84 Long term (current) use of oral hypoglycemic drugs; Z79.82 Long term (current) use of aspirin; Z79.890 Hormone replacement therapy; Z79.899 Other long term (current) drug therapy; Z88.0 Allergy status to penicillin; Z88.5 Allergy status to narcotic agent; Z91.048 Other nonmedicinal substance allergy status; Z95.5 Presence of coronary angioplasty implant and graft; Z95.1 Presence of aortocoronary bypass graft; Z98.84 Bariatric surgery status; Z90.49 Acquired absence of other specified parts of digestive tract; Z90.710 Acquired absence of both cervix and uterus; Z87.891 Personal history of nicotine dependence; Z87.440 Personal history of urinary (tract) infections; Z82.49 Family history of ischemic heart disease and other diseases of the circulatory system; Z80.9 Family history of malignant neoplasm, unspecified
CPT/HCPCS: 93005 ×2; 99285; 36415; 93017; 83880; 80053; 80048; 82550 ×2; 82553 ×2; 83735; 84484 ×2; 85025; 85610; 85730; 71046; 78452; G0378 ×3; C8929; A9500; J2785; Q9950; 93306

== ENCOUNTER 2022-05-02 15:12 | Observation (INO) | payer MEDICARE, OTHER ==
--- NOTE | 2022-05-02 15:40 | ED ---
SOB HPI - General Chief Complaint: Shortness of Breath Stated Complaint: Shortness of Breath, Extremity Swelling Time Seen by Provider: 05/02/22 15:19 Source: patient, family, RN notes reviewed Mode of arrival: ambulatory Limitations: no limitations - History of Present Illness Initial Comments: This is a 71-year-old female with a PMHx of DM, HTN, HLD, and CAD with 5-vessel CABG in 2016 who presents to the emergency department for shortness of breath, coughing, fatigue, dizziness, and bilateral upper and lower extremity swelling. States that she was previously on Amaryl for diabetes, however 2-3 weeks ago her provider switched her to metformin. He felt that this would work better for her. Her last hemoglobin A1c on the Amaryl was 7.5. Patient states that she knows this is related to her diet and did not want to switch medications. Her symptoms have been present since starting the metformin, and she is concerned that this may be related. She has no known history of congestive heart failure. She contacted Dr. Ovalle, her sports medicine physician, 3 days ago. She was given a prescription for Lasix and potassium which she has been taking for the last 3 days. Denies any fevers, chills, sore throat, chest pain, palpitations, abdominal p ain, nausea, vomiting, diarrhea, back pain, or headaches. MD Complaint: shortness of breath Onset/Timin -: week(s) Known History Of: diabetes Associated Symptoms: cough, lower extremity pain Treatments Prior to Arrival: none - Related Data Home Medications Medication Instructions Recorded Confirmed Glimepiride [Amaryl] 4 mg PO BID 03/08/16 05/02/22 Aspirin [Kent Aspirin EC] 81 mg PO BID 12/10/18 05/02/22 Atorvastatin [Lipitor] 40 mg PO HS 12/10/18 05/02/22 Latanoprost/Pf [Latanoprost 0.005% 1 drop BOTH EYES HS 12/10/18 05/02/22 Eye Drop] Biotin 5 mg PO DAILY 05/02/22 05/02/22 Brimonidine Tartrate [Alphagan P 1 drops BOTH EYES BID 05/02/22 05/02/22 0.2% Ophth Soln] Cholecalciferol [Vitamin D3 (25 25 mcg PO DAILY 05/02/22 05/02/22 Mcg = 1000 Iu)] Co Q-10 100mg 100 mg PO DAILY 05/02/22 05/02/22 Docusate [Colace] 100 mg PO DAILY 05/02/22 05/02/22 Furosemide [Lasix] 40 mg PO DAILY 05/02/22 05/02/22 Losartan [Cozaar] 50 mg PO DAILY 05/02/22 05/02/22 Potassium Chloride ER [K-Dur 10] 10 meq PO DAILY 05/02/22 05/02/22 Vitamin B Complex 1 cap PO DAILY 05/02/22 05/02/22 Vitamin E 400 unit PO DAILY 05/02/22 05/02/22 Zinc 50 mg PO DAILY 05/02/22 05/02/22 Previous Rx's Medication Instructions Recorded Isosorbide Mononitrate ER [Imdur] 30 mg PO DAILY #30 tab.er.24h 12/12/18 Nitroglycerin Sl Tabs [Nitrostat] 0.4 mg SUBLINGUAL Q5M PRN #10 tab 12/12/18 Allergies Allergy/AdvReac Type Severity Reaction Status Date / Time codeine Allergy "felt like Verified 05/02/22 17:12 I was having a heart attack" diphenhydramine HCl Allergy "my feet Verified 05/02/22 17:12 [From Benadryl] were running, and hands digging during heart cath" Penicillins Allergy Swelling/hi Verified 05/02/22 17:12 ves Oicmhnv-WZC-SfJ Reductase AdvReac muscle pain Verified 05/02/22 17:12 Inhibitor [Dcnkrzo-Zsb-Jjf Reductase Inhibitor] silk surgical tape Allergy blisters Uncoded 05/02/22 15:17 skin Review of Systems ROS Statement: Those systems with pertinent positive or pertinent negative responses have been documented in the HPI. ROS Other: All systems not noted in ROS Statement are negative. Past Medical History Past Medical History: Coronary Artery Disease (CAD), Diabetes Mellitus, Hyperlipidemia, Hypertension, Thyroid Disorder Additional Past Medical History / Comment(s): gets occ outbreaks on labia and thinks it may be herpes but never dx- last outbreak few weeks ago",poor vision more the rt eye.-receives injection monthly to reduce swelling around cornea, HX OF ALOPECIA- pt told thyroid levels were low normal but placed on meds, galucoma both eyes, diabetic retinopathy susie,uti, History of Any Multi-Drug Resistant Organisms: None Reported Past Surgical History: Appendectomy, Bariatric Surgery, Cholecystectomy, Coronary Bypass/CABG, Heart Catheterization With Stent, Hysterectomy, Tonsillectomy Additional Past Surgical History / Comment(s): gastric bypass-arlene en y,stents x4,susie eye surgery. eye injections Past Anesthesia/Blood Transfusion Reactions: Previous Problems w/ Anesthesia Additional Past Anesthesia/Blood Transfusion Reaction / Comment(s): took along time to come out of bariatric surgery Date of Last Stent Placement:: 2005? Past Psychological History: Anxiety, Depression Smoking Status: Never smoker Past Alcohol Use History: Rare Past Drug Use History: Marijuana - Past Family History Father Family Medical History: Cancer, Myocardial Infarction ([place]) Additional Family Medical History / Comment(s): CABG Mother Family Medical History: No Reported History Brother(s) Family Medical History: Myocardial Infarction ([place]) Additional Family Medical History / Comment(s): [place] in early 40's, states "heart functioning at 20%" General Exam Limitations: no limitations General appearance: alert, in no apparent distress Head exam: Present: atraumatic, normocephalic, normal inspection Respiratory exam: Present: normal lung sounds bilaterally. Absent: respiratory distress, wheezes, rales, rhonchi, stridor Cardiovascular Exam: Present: regular rate, normal rhythm, normal heart sounds. Absent: systolic murmur, diastolic murmur, rubs, gallop, clicks GI/Abdominal exam: Present: soft, normal bowel sounds. Absent: distended, tenderness, guarding, rebound, rigid Extremities exam: Present: normal capillary refill, other (Negative Eduin's sign). Absent: pedal edema, joint swelling, calf tenderness Neurological exam: Present: alert, oriented X3, CN II-XII intact Psychiatric exam: Present: normal affect, normal mood Skin exam: Present: warm, dry, intact, normal color. Absent: rash Course Vital Signs 05/02/22 05/02/22 05/02/22 15:13 16:16 18:05 Temperature 96.8 F L Pulse Rate 87 74 73 Respiratory 18 18 16 Rate Blood Pressure 146/76 109/61 103/71 O2 Sat by Pulse 97 96 Oximetry 05/02/22 05/02/22 21:30 22:00 Temperature Pulse Rate 66 71 Respiratory 18 Rate Blood Pressure 153/82 153/82 O2 Sat by Pulse 98 99 Oximetry Medical Decision Making - Medical Decision Making This is a 71-year-old female who presents to the emergency department for shortness of breath, coughing, bilateral upper and lower extremity swelling, dizziness, and fatigue. Lab work reveals an elevated d-dimer. Patient has very poor kidney function and a CTA was unable to be obtained. We tried to obtain a VQ scan in the emergency department, however this would not be able to get done for 8-9 hours. Given the bilateral leg cramping, IVC ultrasound was obtained, this was limited by the patient's body habitus and recent food consumption, however there were no signs of an identifiable thrombosis from what was visual ized. EKG also reveals changes including Q waves in V1 through V4 and left ventricular hypertrophy, not present on prior EKG. Given the patient's multiple comorbidities and concerning symptoms, will admit the patient for cardiac observation with serial troponins and pulmonary embolism rule out with a VQ scan in the morning. It is unclear if symptoms have any relation to the Metformin, as that would be an unusual presentation. This case was discussed in detail with the attending ED physician. Presentation, findings, and treatment plan discussed in detail as well. - Lab Data Result diagrams: 05/02/22 15:39 05/02/22 15:39 Lab Results 05/02/22 05/02/22 05/02/22 Range/Units 15:39 15:39 15:39 WBC 7.3 (3.8-10.6) k/uL RBC 4.56 (3.80-5.40) m/uL Hgb 12.9 (11.4-16.0) gm/dL Hct 40.9 (34.0-46.0) % MCV 89.6 (80.0-100.0) fL MCH 28.4 (25.0-35.0) pg MCHC 31.7 (31.0-37.0) g/dL RDW 13.9 (11.5-15.5) % Plt Count 252 (150-450) k/uL MPV 9.2 Neutrophils % 72 % Lymphocytes % 20 % Monocytes % 4 % Eosinophils % 2 % Basophils % 1 % Neutrophils # 5.2 (1.3-7.7) k/uL Lymphocytes # 1.4 (1.0-4.8) k/uL Monocytes # 0.3 (0-1.0) k/uL Eosinophils # 0.2 (0-0.7) k/uL Basophils # 0.1 (0-0.2) k/uL PT 10.4 (9.0-12.0) sec INR 1.0 (<1.2) APTT 22.8 (22.0-30.0) sec D-Dimer (<0.60) mg/L FEU Sodium 132 L (137-145) mmol/L Potassium 4.8 (3.5-5.1) mmol/L Chloride 99 (98-107) mmol/L Carbon Dioxide 25 (22-30) mmol/L Anion Gap 8 mmol/L BUN 41 H (7-17) mg/dL Creatinine 1.49 H (0.52-1.04) mg/dL Est GFR (CKD-EPI)AfAm 41 (>60 ml/min/1.73 sqM) Est GFR (CKD-EPI)NonAf 35 (>60 ml/min/1.73 sqM) Glucose 350 H (74-99) mg/dL Plasma Lactic Acid Tyson (0.7-2.0) mmol/L Calcium 9.1 (8.4-10.2) mg/dL Magnesium 1.7 (1.6-2.3) mg/dL Total Bilirubin 0.5 (0.2-1.3) mg/dL AST 21 (14-36) U/L ALT 21 (4-34) U/L Alkaline Phosphatase 156 H (38-126) U/L Troponin I (0.000-0.034) ng/mL NT-Pro-B Natriuret Pep pg/mL Total Protein 7.1 (6.3-8.2) g/dL Albumin 4.3 (3.5-5.0) g/dL Coronavirus (PCR) (Not Detectd) Influenza Type A RNA (Not Detectd) Influenza Type B (PCR) (Not Detectd) 05/02/22 05/02/22 05/02/22 Range/Units 15:39 15:39 15:39 WBC (3.8-10.6) k/uL RBC (3.80-5.40) m/uL Hgb (11.4-16.0) gm/dL Hct (34.0-46.0) % MCV (80.0-100.0) fL MCH (25.0-35.0) pg MCHC (31.0-37.0) g/dL RDW (11.5-15.5) % Plt Count (150-450) k/uL MPV Neutrophils % % Lymphocytes % % Monocytes % % Eosinophils % % Basophils % % Neutrophils # (1.3-7.7) k/uL Lymphocytes # (1.0-4.8) k/uL Monocytes # (0-1.0) k/uL Eosinophils # (0-0.7) k/uL Basophils # (0-0.2) k/uL PT (9.0-12.0) sec INR (<1.2) APTT (22.0-30.0) sec D-Dimer (<0.60) mg/L FEU Sodium (137-145) mmol/L Potassium (3.5-5.1) mmol/L Chloride (98-107) mmol/L Carbon Dioxide (22-30) mmol/L Anion Gap mmol/L BUN (7-17) mg/dL Creatinine (0.52-1.04) mg/dL Est GFR (CKD-EPI)AfAm (>60 ml/min/1.73 sqM) Est GFR (CKD-EPI)NonAf (>60 ml/min/1.73 sqM) Glucose (74-99) mg/dL Plasma Lactic Acid Tyson (0.7-2.0) mmol/L Calcium (8.4-10.2) mg/dL Magnesium (1.6-2.3) mg/dL Total Bilirubin (0.2-1.3) mg/dL AST (14-36) U/L ALT (4-34) U/L Alkaline Phosphatase (38-126) U/L Troponin I <0.012 (0.000-0.034) ng/mL NT-Pro-B Natriuret Pep pg/mL Total Protein (6.3-8.2) g/dL Albumin (3.5-5.0) g/dL Coronavirus (PCR) Not Detected (Not Detectd) Influenza Type A RNA Not Detected (Not Detectd) Influenza Type B (PCR) Not Detected (Not Detectd) 05/02/22 05/02/22 05/02/22 Range/Units 15:39 16:17 19:00 WBC (3.8-10.6) k/uL RBC (3.80-5.40) m/uL Hgb (11.4-16.0) gm/dL Hct (34.0-46.0) % MCV (80.0-100.0) fL MCH (25.0-35.0) pg MCHC (31.0-37.0) g/dL RDW (11.5-15.5) % Plt Count (150-450) k/uL MPV Neutrophils % % Lymphocytes % % Monocytes % % Eosinophils % % Basophils % % Neutrophils # (1.3-7.7) k/uL Lymphocytes # (1.0-4.8) k/uL Monocytes # (0-1.0) k/uL Eosinophils # (0-0.7) k/uL Basophils # (0-0.2) k/uL PT (9.0-12.0) sec INR (<1.2) APTT (22.0-30.0) sec D-Dimer 0.77 H (<0.60) mg/L FEU Sodium (137-145) mmol/L Potassium (3.5-5.1) mmol/L Chloride (98-107) mmol/L Carbon Dioxide (22-30) mmol/L Anion Gap mmol/L BUN (7-17) mg/dL Creatinine (0.52-1.04) mg/dL Est GFR (CKD-EPI)AfAm (>60 ml/min/1.73 sqM) Est GFR (CKD-EPI)NonAf (>60 ml/min/1.73 sqM) Glucose (74-99) mg/dL Plasma Lactic Acid Tyson 1.1 (0.7-2.0) mmol/L Calcium (8.4-10.2) mg/dL Magnesium (1.6-2.3) mg/dL Total Bilirubin (0.2-1.3) mg/dL AST (14-36) U/L ALT (4-34) U/L Alkaline Phosphatase (38-126) U/L Troponin I (0.000-0.034) ng/mL NT-Pro-B Natriuret Pep 310 pg/mL Total Protein (6.3-8.2) g/dL Albumin (3.5-5.0) g/dL Coronavirus (PCR) (Not Detectd) Influenza Type A RNA (Not Detectd) Influenza Type B (PCR) (Not Detectd) - EKG Data EKG Comments: Sinus rhythm with sinus arrhythmia. Q waves in leads V1-V4. Left ventricular h ypertrophy. Ventricular rate 80 bpm, MD interval 178 ms, QRS duration 99 ms, QTC 408 ms. When compared to previous EKG there are: changes noted - Radiology Data Radiology results: report reviewed, image reviewed Disposition Clinical Impression: Abnormal Q waves on electrocardiogram, LIAM (acute kidney injury), Exertional shortness of breath Disposition: ADMITTED IP TO THIS HOSP
[2022-05-02 15:51] LABS: Basophils # (A) 0.1 k/uL (0-0.2); Basophils % (A) 1 %; Eosinophils # (A) 0.2 k/uL (0-0.7); Eosinophils % (A) 2 %; HCT 40.9 % (34.0-46.0); HGB 12.9 gm/dL (11.4-16.0); Lymphocytes # (A) 1.4 k/uL (1.0-4.8); Lymphocytes % (A) 20 %; MCH 28.4 pg (25.0-35.0); MCHC 31.7 g/dL (31.0-37.0); MCV 89.6 fL (80.0-100.0); Mean Platelet Volume 9.2; Monocytes # (A) 0.3 k/uL (0-1.0); Monocytes % (A) 4 %; Neutrophils # (A) 5.2 k/uL (1.3-7.7); Neutrophils % (A) 72 %; Platelet Count 252 k/uL (150-450); RBC 4.56 m/uL (3.80-5.40); RDW 13.9 % (11.5-15.5); WBC 7.3 k/uL (3.8-10.6)
[2022-05-02 16:00] LABS: Albumin 4.3 g/dL (3.5-5.0); Calcium 9.1 mg/dL (8.4-10.2); Magnesium 1.7 mg/dL (1.6-2.3); Potassium 4.8 mmol/L (3.5-5.1); Total Bilirubin 0.5 mg/dL (0.2-1.3); Total Protein 7.1 g/dL (6.3-8.2)
--- NOTE | 2022-05-02 16:02 | XR ---
EXAMINATION TYPE: XR chest 2V DATE OF EXAM: 05/02/2022 3:45 PM COMPARISON: Chest radiographs from 12/10/2018 TECHNIQUE: XR chest 2V Frontal and lateral views of the chest. CLINICAL INDICATION:Female, 71 years old with history of difficulty breathing; FINDINGS: Lungs/Pleura: There is no evidence of pleural effusion, focal consolidation, or pneumothorax. Pulmonary vascularity: Unremarkable. Heart/mediastinum: Cardiomediastinal silhouette is unremarkable. Musculoskeletal: No acute osseous pathology. Midline sternotomy wires are noted and stable. Other findings: Cholecystectomy clips identified in the upper abdomen. IMPRESSION: No acute cardiopulmonary disease/process.
[2022-05-02 16:05] LABS: Partial Thromboplastin Time 22.8 sec (22.0-30.0); Prothrombin Time 10.4 sec (9.0-12.0)
[2022-05-02] MEDS ORDERED: SODIUM CHLORIDE 0.9% 1,000 ML IV STA (17:35)
--- NOTE | 2022-05-02 19:19 | US ---
EXAMINATION TYPE: US duplex IVC DATE OF EXAM: 05/02/2022 COMPARISON: NONE CLINICAL HISTORY: Bilateral lower extremity swelling, pain, cramping. Lower extremity swelling Limited exam of IVC- pt not NPO- just ate prior to ultrasound, and pt morbidly obese Only proximal portion of IVC visualized and patent/ mid and distal portions not visualized due to r easons above IMPRESSION: Limited exam shows patency of the inferior vena cava. No evidence of thrombosis.
[2022-05-02] MEDS ORDERED: ONDANSETRON 4 MG/2 ML VIAL IVP PRN (20:43)
[2022-05-02] MEDS ORDERED: ACETAMINOPHEN TAB 325 MG TAB PO PRN (20:43)
[2022-05-02] MEDS ORDERED: NALOXONE 0.4 MG/ML 1 ML VIAL IV PRN (20:43)
[2022-05-02] MEDS ORDERED: SODIUM CHLORIDE 0.9% 1,000 ML IV SCH (20:45)
[2022-05-02] MEDS ORDERED: ATORVASTATIN 40 MG TAB PO SCH (21:00)
[2022-05-02] MEDS ORDERED: GLIMEPIRIDE 4 MG TAB PO SCH (23:00)
[2022-05-02] MEDS ORDERED: LATANOPROST 0.005% OPHTH DROPS 2.5 ML BTL BOTH EYES SCH (23:00)
[2022-05-02 23:47] LABS: Glucose,Whole Blood 157 mg/dL (70-110)
--- NOTE | 2022-05-03 00:20 | P.HPIM ---
History of Present Illness H&P Date: 05/02/22 The patient is a 71-year-old female with a PMH of CAD status post CABG in 2016, chronic kidney disease, hypertension, hyperlipidemia, type II DM who presents to the emergency room with complaints of gradually worsening dyspnea on exertion. The patient reports her symptoms started roughly 2 weeks ago, with decreased exercise tolerance. She reports being unable to perform her daily tasks such as cooking as she has to take multiple breaks to catch her breath. States that this is a very unusual for her. Denied experiencing chest discomfort. Reports a chronic nonproductive cough. Denied palpitations no nausea, vomiting, diarrhea. Reports experiencing some lower extremity edema for which she was started on oral Lasix by her implementation director 4 days ago. Denied fever, chills, abdominal pain or diarrhea. Chest x-ray in the emergency room was unremarkable with telemetry showing remarkable for creatinine of 1.49 (previously 1.22 in 2019), troponin less than 0.012 d-dimer 0.77, and proBNP 310. Review of systems: Pertinent positives and negatives as discussed in HPI, a complete review of sys tems was performed and all other systems are negative. Physical examination: General: non toxic, no distress, appears at stated age, obese Derm: no unusual rashes/lesions, warm Head: atraumatic, normocephalic, symmetric Eyes: EOMI, no lid lag, anicteric sclera, pupils equal round reactive to light ENT: Nose and ears atraumatic Neck: No cervical lymphadenopathy, trachea midline, supple Mouth: no lip lesion, mucus membranes moist Cardiovascular: S1S2 reg, no murmur, positive dorsalis pedis pulse bilateral, 1+ the lateral lower extremity pitting edema Lungs: CTA bilateral, no rhonchi, no rales, no accessory muscle use Abdominal: soft, nontender to palpation, no guarding Ext: muscle strength 5 out of 5 in all 4 extremities grossly, no gross muscle atrophy, no contractures, Neuro: CN II-XI grossly intact, no gross focal neuro deficits Psych: Alert, oriented, appropriate affect Assessment/plan Exertional dyspnea, with significant history of coronary artery disease -Obtain echocardiogram -Cardiology consulted -Trend troponin LIAM on chronic kidney disease -Patient recently started on Lasix days ago -Hold off on Lasix at this time Chronic conditions: Hypertension, hyperlipidemia, type II DM -Continue with home meds -Insulin sliding scale and blood glucose monitoring DVT prophylaxis -Heparin subcu The patient is admitted with an anticipated less than 2 midnight stay for evalua tion of SOB CODE STATUS: Full Code Discussed with: Patient Anticipated discharge date: in am Anticipated discharge place: Home Past Medical History Past Medical History: Coronary Artery Disease (CAD), Diabetes Mellitus, Hyperlipidemia, Hypertension, Thyroid Disorder Additional Past Medical History / Comment(s): gets occ outbreaks on labia and thinks it may be herpes but never dx- last outbreak few weeks ago",poor vision more the rt eye.-receives injection monthly to reduce swelling around cornea, HX OF ALOPECIA- pt told thyroid levels were low normal but placed on meds, galucoma both eyes, diabetic retinopathy susie,uti, History of Any Multi-Drug Resistant Organisms: None Reported Past Surgical History: Appendectomy, Bariatric Surgery, Cholecystectomy, Coronary Bypass/CABG, Heart Catheterization With Stent, Hysterectomy, Tonsillectomy Additional Past Surgical History / Comment(s): gastric bypass-arlene en y,stents x4,susie eye surgery. eye injections Past Anesthesia/Blood Transfusion Reactions: Previous Problems w/ Anesthesia Additional Past Anesthesia/Blood Transfusion Reaction / Comment(s): took along time to come out of bariatric surgery Date of Last Stent Placement:: 2005? Past Psychological History: Anxiety, Depression Smoking Status: Never smoker Past Alcohol Use History: Rare Past Drug Use History: Marijuana - Past Family History Father Family Medical History: Cancer, Myocardial Infarction ([place]) Additional Family Medical History / Comment(s): CABG Mother Family Medical History: No Reported History Brother(s) Family Medical History: Myocardial Infarction ([place]) Additional Family Medical History / Comment(s): [place] in early 40's, states "heart functioning at 20%" Medications and Allergies Home Medications Medication Instructions Recorded Confirmed Type Glimepiride [Amaryl] 4 mg PO BID 03/08/16 05/02/22 History Aspirin [Hall Aspirin EC] 81 mg PO BID 12/10/18 05/02/22 History Atorvastatin [Lipitor] 40 mg PO HS 12/10/18 05/02/22 History Latanoprost/Pf [Latanoprost 0.005% 1 drop BOTH EYES HS 12/10/18 05/02/22 History Eye Drop] Isosorbide Mononitrate ER [Imdur] 30 mg PO DAILY #30 tab.er.24h 12/12/18 05/02/22 Rx Nitroglycerin Sl Tabs [Nitrostat] 0.4 mg SUBLINGUAL Q5M PRN #10 tab 12/12/18 05/02/22 Rx Biotin 5 mg PO DAILY 05/02/22 05/02/22 History Brimonidine Tartrate [Alphagan P 1 drops BOTH EYES BID 05/02/22 05/02/22 History 0.2% Ophth Soln] Cholecalciferol [Vitamin D3 (25 25 mcg PO DAILY 05/02/22 05/02/22 History Mcg = 1000 Iu)] Co Q-10 100mg 100 mg PO DAILY 05/02/22 05/02/22 History Docusate [Colace] 100 mg PO DAILY 05/02/22 05/02/22 History Furosemide [Lasix] 40 mg PO DAILY 05/02/22 05/02/22 History Losartan [Cozaar] 50 mg PO DAILY 05/02/22 05/02/22 History Potassium Chloride ER [K-Dur 10] 10 meq PO DAILY 05/02/22 05/02/22 History Vitamin B Complex 1 cap PO DAILY 05/02/22 05/02/22 History Vitamin E 400 unit PO DAILY 05/02/22 05/02/22 History Zinc 50 mg PO DAILY 05/02/22 05/02/22 History Allergies Allergy/AdvReac Type Severity Reaction Status Date / Time codeine Allergy "felt like Verified 05/02/22 17:12 I was having a heart attack" diphenhydramine HCl Allergy "my feet Verified 05/02/22 17:12 [From Benadryl] were running, and hands digging during heart cath" Penicillins Allergy Swelling/hi Verified 05/02/22 17:12 ves Evpyrxh-HSR-BsR Reductase AdvReac muscle pain Verified 05/02/22 17:12 Inhibitor [Tjfcarb-Yma-Nza Reductase Inhibitor] silk surgical tape Allergy blisters Uncoded 05/02/22 15:17 skin Physical Exam Vitals: Vital Signs Temp Pulse Resp BP Pulse Ox 05/02/22 22:00 71 153/82 99 05/02/22 21:30 66 18 153/82 98 05/02/22 18:05 73 16 103/71 96 05/02/22 16:16 74 18 109/61 05/02/22 15:13 96.8 F L 87 18 146/76 97 Intake and Output 05/02/22 05/02/22 05/03/22 14:59 22:59 06:59 Other: Weight 97.522 kg Results CBC & Chem 7: 05/02/22 15:39 05/02/22 15:39 Labs: Abnormal Lab Results - Last 24 Hours (Table) 05/02/22 05/02/22 Range/Units 15:39 15:39 D-Dimer 0.77 H (<0.60) mg/L FEU Sodium 132 L (137-145) mmol/L BUN 41 H (7-17) mg/dL Creatinine 1.49 H (0.52-1.04) mg/dL Glucose 350 H (74-99) mg/dL Alkaline Phosphatase 156 H (38-126) U/L
[2022-05-03] MEDS: BRIMONIDINE TARTRATE 0.2% DROPS 5 ML BTL BOTH EYES SCH ×2 (00:21→08:50)
[2022-05-03 07:10] LABS: Glucose,Whole Blood 153 mg/dL (70-110)
[2022-05-03] MEDS: HEPARIN SODIUM,PORCINE/PF 5,000 UNIT/0.5 ML SYRINGE SQ SCH ×2 (08:48→15:20)
[2022-05-03] MEDS ORDERED: LOSARTAN 50 MG TAB PO SCH (09:00)
[2022-05-03] MEDS ORDERED: POTASSIUM CHLORIDE ER 10 MEQ TAB.ER.PRT PO SCH (09:00)
[2022-05-03] MEDS ORDERED: NON FORMULARY DRUG (Biotin [Biotin] 5 MG Capsule) PO SCH (09:00)
[2022-05-03] MEDS ORDERED: CHOLECALCIFEROL 25 MCG (1000 IU) TABLET PO SCH (09:00)
[2022-05-03] MEDS ORDERED: ISOSORBIDE MONONITRATE ER 30 MG TAB.ER.24H PO SCH (09:00)
[2022-05-03] MEDS ORDERED: NON FORMULARY DRUG (Co Q-10 100mg 100 MG) PO SCH (09:00)
[2022-05-03] MEDS ORDERED: FUROSEMIDE 40 MG TAB PO SCH (09:00)
[2022-05-03] MEDS ORDERED: DOCUSATE 100 MG CAP PO SCH (09:00)
--- NOTE | 2022-05-03 09:46 | P.CRDCN ---
History of Present Illness Consult date: 05/03/22 History of present illness: HISTORY OF PRESENT ILLNESS: This is a 71-year-old female with a past medical history significant for coronary artery disease with previous CABG, hypertension, hyperlipidemia, and diabetes. Patient follows in the office with Dr. Ovalle. We have been asked to see the patient in consultation for shortness of breath. Patient examined at the bedside. Patient presented to the hospital with multiple vague symptoms. She s tates that she has been feeling poorly over the past 3-4 weeks. She reports having no energy. She states yesterday she went to make a dish for a April libertarian that she was going to and it took her 3 times longer than normal to make this discharge she was exhausted and required multiple breaks. She reports she has been coughing a lot recently which she thinks is worse when she lays down. She denies having any significant shortness of breath. She does report having some increased lower extremity edema. She states Dr. Ovalle started her on Lasix for days ago and she has taken her Lasix for times. She denies any waking over the past few weeks. She denies having any chest pain or pressure. * EKG reveals sinus mechanism with no signs of acute ischemia * Chest xray negative for acute process * Laboratory data: WBC 7.3. Hemoglobin 12.9. Platelet count 252. Sodium 132. Potassium 4.8. BUN 41. Creatinine 1.49. Troponin negative 3. ProBNP 310. * Current home cardiac medications include Lasix 40 mg daily, losartan 50 mg daily, Imdur 30 g daily, Lipitor 80 mg at night and aspirin 81 mg daily * Most recent echocardiogram obtained in March 2020 at the cardiology office revealed ejection fraction 55%, mild MR, mild TR REVIEW OF SYSTEMS: At the time of my exam: CONSTITUTIONAL: Denies fever or chills. HEENT: Denies blurred vision, vision changes, or eye pain. Denies hemoptysis CARDIOVASCULAR: Denies chest pain. Denies orthopnea. Denies PND. Denies palpitations RESPIRATORY: Denies shortness of breath. GASTROINTESTINAL: Denies abdominal pain. Denies nausea or vomiting. HEMATOLOGIC: Denies bleeding disorders. GENITOURINARY: Denies any blood in urine. SKIN: Denies pruitis. Denies rash. PHYSICAL EXAM: VITAL SIGNS: Reviewed. GENERAL: Well-developed in no acute distress. HEENT: Head is normocephalic. Pupils are equal, round. Sclerae anicteric. Mucous membranes of the mouth are moist. Neck supple. No JVD or thyromegaly LUNGS: Respirations even and unlabored. Lungs essentially clear to auscultation bilaterally. HEART: Regular rate and rhythm. S1 and S2 heard. ABDOMEN: Soft. Nondistended. Nontender. EXTREMITIES: Normal range of motion. No clubbing or cyanosis. Peripheral pulses intact. Trace lower extremity edema NEUROLOGIC: Awake and alert. Oriented x 3. ASSESSMENT: Generalized weakness and fatigue Mild shortness of breath, etiology unclear Possible mild congestive heart failure, however appears euvolemic on exam with clear breath sounds, normal BNP, and unremarkable chest x-ray Acute kidney injury Coronary artery disease with previous CABG 5 vessels, 2016 Hypertension Hyperlipidemia Diabetes PLAN: An acute coronary event has been ruled out Continue to hold Lasix at this time Discontinue IV fluids Obtain 2-D echo to assess cardiac structure and function Continue to monitor patient overnight Further recommendations pending patient's course Nurse practitioner note has been reviewed by physician. Signing provider agrees with the documented findings, assessment, and plan of care. Past Medical History Past Medical History: Coronary Artery Disease (CAD), Diabetes Mellitus, Hype rlipidemia, Hypertension, Thyroid Disorder Additional Past Medical History / Comment(s): gets occ outbreaks on labia and thinks it may be herpes but never dx- last outbreak few weeks ago",poor vision more the rt eye.-receives injection monthly to reduce swelling around cornea, HX OF ALOPECIA- pt told thyroid levels were low normal but placed on meds, galucoma both eyes, diabetic retinopathy susie,uti, History of Any Multi-Drug Resistant Organisms: None Reported Past Surgical History: Appendectomy, Bariatric Surgery, Cholecystectomy, Coronary Bypass/CABG, Heart Catheterization With Stent, Hysterectomy, Tonsillectomy Additional Past Surgical History / Comment(s): gastric bypass-arlene en y,stents x4,susie eye surgery. eye injections Past Anesthesia/Blood Transfusion Reactions: Previous Problems w/ Anesthesia Additional Past Anesthesia/Blood Transfusion Reaction / Comment(s): took along time to come out of bariatric surgery Date of Last Stent Placement:: 2005? Past Psychological History: Anxiety, Depression Smoking Status: Never smoker Past Alcohol Use History: Rare Past Drug Use History: Marijuana - Past Family History Father Family Medical History: Cancer, Myocardial Infarction ([place]) Additional Family Medical History / Comment(s): CABG Mother Family Medical History: No Reported History Additional Family Medical History / Comment(s): breast cysts Brother(s) Family Medical History: Myocardial Infarction ([place]) Additional Family Medical History / Comment(s): [place] in early 40's, states "heart functioning at 20%" Medications and Allergies Home Medications Medication Instructions Recorded Confirmed Type Glimepiride [Amaryl] 4 mg PO BID 03/08/16 05/02/22 History Aspirin [Kings Aspirin EC] 81 mg PO BID 12/10/18 05/02/22 History Atorvastatin [Lipitor] 40 mg PO HS 12/10/18 05/02/22 History Latanoprost/Pf [Latanoprost 0.005% 1 drop BOTH EYES HS 12/10/18 05/02/22 History Eye Drop] Isosorbide Mononitrate ER [Imdur] 30 mg PO DAILY #30 tab.er.24h 12/12/18 05/02/22 Rx Nitroglycerin Sl Tabs [Nitrostat] 0.4 mg SUBLINGUAL Q5M PRN #10 tab 12/12/18 05/02/22 Rx Biotin 5 mg PO DAILY 05/02/22 05/02/22 History Brimonidine Tartrate [Alphagan P 1 drops BOTH EYES BID 05/02/22 05/02/22 History 0.2% Ophth Soln] Cholecalciferol [Vitamin D3 (25 25 mcg PO DAILY 05/02/22 05/02/22 History Mcg = 1000 Iu)] Co Q-10 100mg 100 mg PO DAILY 05/02/22 05/02/22 History Docusate [Colace] 100 mg PO DAILY 05/02/22 05/02/22 History Furosemide [Lasix] 40 mg PO DAILY 05/02/22 05/02/22 History Losartan [Cozaar] 50 mg PO DAILY 05/02/22 05/02/22 History Potassium Chloride ER [K-Dur 10] 10 meq PO DAILY 05/02/22 05/02/22 History Vitamin B Complex 1 cap PO DAILY 05/02/22 05/02/22 History Vitamin E 400 unit PO DAILY 05/02/22 05/02/22 History Zinc 50 mg PO DAILY 05/02/22 05/02/22 History Allergies Allergy/AdvReac Type Severity Reaction Status Date / Time codeine Allergy "felt like Verified 05/02/22 17:12 I was having a heart attack" diphenhydramine HCl Allergy "my feet Verified 05/02/22 17:12 [From Benadryl] were running, and hands digging during heart cath" Penicillins Allergy Swelling/hi Verified 05/02/22 17:12 ves Bnudqug-TUP-TyP Reductase AdvReac muscle pain Verified 05/02/22 17:12 Inhibitor [Qbjjebp-Qdl-Vgo Reductase Inhibitor] silk surgical tape Allergy blisters Uncoded 05/02/22 15:17 skin Physical Exam Vitals: Vital Signs Temp Pulse Pulse Resp BP BP Pulse Ox 05/03/22 07:57 97.7 F 64 16 145/66 96 05/03/22 02:17 97.9 F 65 18 132/67 96 05/02/22 23:43 97.5 F L 81 18 179/93 99 05/02/22 22:00 71 153/82 99 05/02/22 21:30 66 18 153/82 98 05/02/22 18:05 73 16 103/71 96 05/02/22 16:16 74 18 109/61 05/02/22 15:13 96.8 F L 87 18 146/76 97 Intake and Output 05/02/22 05/03/22 05/03/22 22:59 06:59 14:59 Other: # Voids 1 1 # Bowel Movements 1 Weight 97.522 kg 97.522 kg Results 05/02/22 15:39 05/02/22 15:39 Cardiac Enzymes 05/02/22 05/02/22 05/02/22 Range/Units 15:39 15:39 21:53 AST 21 (14-36) U/L Troponin I <0.012 <0.012 (0.000-0.034) ng/mL 05/03/22 Range/Units 01:20 AST (14-36) U/L Troponin I <0.012 (0.000-0.034) ng/mL Coagulation 05/02/22 Range/Units 15:39 PT 10.4 (9.0-12.0) sec APTT 22.8 (22.0-30.0) sec CBC 05/02/22 Range/Units 15:39 WBC 7.3 (3.8-10.6) k/uL RBC 4.56 (3.80-5.40) m/uL Hgb 12.9 (11.4-16.0) gm/dL Hct 40.9 (34.0-46.0) % Plt Count 252 (150-450) k/uL Comprehensive Metabolic Panel 05/02/22 Range/Units 15:39 Sodium 132 L (137-145) mmol/L Potassium 4.8 (3.5-5.1) mmol/L Chloride 99 (98-107) mmol/L Carbon Dioxide 25 (22-30) mmol/L BUN 41 H (7-17) mg/dL Creatinine 1.49 H (0.52-1.04) mg/dL Glucose 350 H (74-99) mg/dL Calcium 9.1 (8.4-10.2) mg/dL AST 21 (14-36) U/L ALT 21 (4-34) U/L Alkaline Phosphatase 156 H (38-126) U/L Total Protein 7.1 (6.3-8.2) g/dL Albumin 4.3 (3.5-5.0) g/dL Current Medications Generic Name Dose Route Start Last Admin Trade Name Freq PRN Reason Stop Dose Admin Acetaminophen 650 mg 05/02/22 20:43 Acetaminophen Tab 325 Mg Tab PO Q6HR PRN Mild Pain or Fever > 100.5 Atorvastatin Calcium 40 mg 05/02/22 21:00 05/03/22 00:21 Atorvastatin 40 Mg Tab PO 40 mg HS PATRICE Administration Brimonidine Tartrate 1 drops 05/02/22 23:00 05/03/22 00:21 Brimonidine Tartrate 0.2% Drops 5 Ml Btl BOTH EYES 1 drops BID PATRICE Administration Cholecalciferol 25 mcg 05/03/22 09:00 Cholecalciferol 25 Mcg (1000 Iu) Tablet PO DAILY [facility] Docusate Sodium 100 mg 05/03/22 09:00 Docusate 100 Mg Cap PO DAILY [facility] Heparin Sodium (Porcine) 5,000 unit 05/03/22 08:00 Heparin Sodium,Porcine/Pf 5,000 Unit/0.5 Ml Syringe SQ Q8HR [facility] Isosorbide Mononitrate 30 mg 05/03/22 09:00 Isosorbide Mononitrate Er 30 Mg Tab.Er.24h PO DAILY PATRICE Latanoprost 1 drops 05/02/22 23:00 05/03/22 00:21 Latanoprost 0.005% Ophth Drops 2.5 Ml Btl BOTH EYES 1 drops HS PATRICE Administration Naloxone HCl 0.2 mg 05/02/22 20:43 Naloxone 0.4 Mg/Ml 1 Ml Vial IV Q2M PRN Opioid Reversal Ondansetron HCl 4 mg 05/02/22 20:43 Ondansetron 4 Mg/2 Ml Vial IVP Q8HR PRN Nausea And Vomiting Potassium Chloride 10 meq 05/03/22 09:00 Potassium Chloride Er 10 Meq Tab.Er.Prt PO DAILY PATRICE Intake and Output 05/02/22 05/03/22 05/03/22 22:59 06:59 14:59 Other: # Voids 1 1 # Bowel Movements 1 Weight 97.522 kg 97.522 kg 05/02/22 15:39 05/02/22 15:39
[2022-05-03 11:50] LABS: Glucose,Whole Blood 235 mg/dL (70-110)
--- NOTE | 2022-05-03 12:22 | CA ---
Transthoracic Echo Report Name: Melisa Bains Age: 71 Gender: F : 1950 Exam Date: 05/03/2022 09:37 Exam Location: [facility] Ht (in): 63 Wt (lb): 215 Ordering Physician: Marybel Orourke MD Attending/Referring Phys: Cardiopulmonary Physical Therapist Melanie Suresh RDCS Procedure CPT: Indications: sob Cardiac Hx: Technical Quality: Fair Contrast 1: Total Dose (mL): Contrast 2: Total Dose (mL): MEASUREMENTS (Male / Female) Normal Values 2D ECHO LV Diastolic Diameter PLAX 3.2 cm 4.2 - 5.9 / 3.9 - 5.3 cm LV Systolic Diameter PLAX 2.2 cm IVS Diastolic Thickness 1.6 cm 0.6 - 1.0 / 0.6 - 0.9 cm LVPW Diastolic Thickness 1.4 cm 0.6 - 1.0 / 0.6 - 0.9 cm LV Relative Wall Thickness 1.0 RV Internal Dim ED PLAX 3.0 cm LA Volume 66.3 cm??? 18 - 58 / 22 - 52 cm??? M-MODE Aortic Root Diameter MM 3.2 cm AV Cusp Separation MM 1.8 cm DOPPLER AV Peak Velocity 145.1 cm/s AV Peak Gradient 8.4 mmHg LVOT Peak Velocity 75.5 cm/s LVOT Peak Gradient 2.3 mmHg MV Area PHT 2.1 cm??? Mitral E Point Velocity 67.5 cm/s Mitral A Point Velocity 122.5 cm/s Mitral E to A Ratio 0.6 MV Deceleration Time 357.3 ms FINDINGS Left Ventricle Moderately increased left ventricular wall thickness. Normal left ventricular systolic function with no obvious regional wall motion abnormalities. Left ventricular ejection fraction is estimated at 50-55 %. Abnormal (paradoxical) septal motion consistent with postoperative state. Right Ventricle Normal right ventricular size. Mild pulmonary hypertension. Right Atrium Normal right atrial size. Left Atrium Moderately increased left atrial volume. No evidence for an atrial septal defect. Mitral Valve Moderate mitral annular calcification. Mild thickening of the mitral valve leaflets. Ixra-xx-poqucwfp mitral regurgitation. Aortic Valve Trileaflet aortic valve. No aortic regurgitation. No aortic stenosis. Aortic valve sclerosis. Tricuspid Valve Structurally normal tricuspid valve. Dsoq-wt-ajrevyzl tricuspid regurgitation. Pulmonic Valve Trace pulmonic regurgitation. Pericardium No pericardial effusion. Aorta Normal size aortic root and proximal ascending aorta. CONCLUSIONS Normal left ventricular dimension and systolic function Zsli-[id number] mitral regurgitation Aortic sclerosis Previewed by: Dr. Lito Levine MD (Electronically Signed) Final Date: 03 May 2022 12:20
[2022-05-03] MEDS: INSULIN ASPART (NovoLOG) 100 UNIT/ML VIAL SQ SCH ×2 (12:44→17:23)
--- NOTE | 2022-05-03 14:13 | NM ---
EXAMINATION TYPE: NM pul vent and perfuse DATE OF EXAM: 05/03/2022 COMPARISON: NONE HISTORY: Shortness of breath, Cough, elevated d-dimer TECHNIQUE: Utilizing inhalation of 35.3 mCi Tc 99m DTPA aerosol and intravenous injection of 4.8 mCi of Tc 99m MAA, ventilation and perfusion images are acquired post injection in multiple projections. FINDINGS: Normal radiotracer distribution is noted in the lungs. There is no evidence of mismatched defects. IMPRESSION: Very low probability for pulmonary embolism.
[2022-05-03 14:43] VITALS: BP 119/75; PULSE 67; RESP 18; TEMP 97.5
--- NOTE | 2022-05-03 16:09 | P.DS ---
Providers Date of admission: 05/02/22 21:28 Expected date of discharge: 05/03/22 Attending physician: Marybel Orourke MD Consults: 05/03/22 00:19 Consult Physician Urgent Consulting Provider: Lito Levine Consult Reason/Comments: SOB, CAD Do you want consulting provider notified?: Yes Primary care physician: Trung Hatch Hospital Course: Discharge Diagnosis: Exertional dyspnea Elevated renal function, creatinine 1.49 with baseline of 1.22. Patient given prescription to have repeat labs completed in 3 days. Hypertension Hyperlipidemia Type II qmo-kaipxac-znfqffihs diabetes mellitus. Hospital Course: The patient is a very pleasant 71-year-old female with a past medical history of CAD with previous quintuple CABG in 2016, hypertension, hyperlipidemia, and nxi-jhyrrrh-noyydsshe diabetes mellitus type 2. Incentive to the emergency department on 05/02/22 with a chief complaint of exertional dyspnea. Patient reported the symptoms began approximately 2 weeks prior and has been accompanied by exercise intolerance. She reports secondary to these complaints she was started on Lasix by her kiln car repairer. Patient denied having any chest pain or tightness denied having any dizziness/lightheadedness, increased swelling in her lower extremities, or experiencing any numbness/tingling/weakness. She underwent full evaluation in the emergency department. CBC unremarkable. D- dimer was slightly elevated at 0.77 (however age adjusted normal d-dimer 0.71), hyponatremia with sodium of 132, and slightly elevated renal function with BUN 41, and creatinine of 1.49 with baseline creatinine of 1.22. Troponin normal at less than 0.012 and proBNP 310. Covid PCR negative and influenza A negative, and influenza B negative. CXR negative for acute cardiopulmonary process. EKG showing sinus rhythm at 80 bpm. Patient was admitted under surfaces with consultation to cardiology. VQ scan revealing a very low probability for pulmonary emboli. Echocardiogram revealing normal left ventricular dimension and systolic function with EF of 50-55% and mild to moderate mitral regurgitation with aortic sclerosis. Inferior vena cava duplex showing no evidence of thrombosis. Cardiology ruling out an acute coronary event, stated if echo and VQ scan negative patient may follow up outpatient with kiln car repairer in office in 1 week. Patient reports feeling significantly better since arrival to our facility. She denied having any chest pain or shortness of breath at rest. Discussed plan of care with patient. Patient to follow up outpatient with PCP in 1-2 days, cardiology in 1 week, and patient given prescription to have a repeat CMP to monitor renal function and she was started back on Lasix and lovastatin. Physical examination: Patient seen and examined at bedside. Vital signs reviewed and stable. General: Nontoxic, no distress and appears stated age. Derm: Skin warm and dry, normal coloration for ethnicity. Head: Atraumatic, normocephalic and symmetric. Eyes: EOMs intact, no lid lag, and anicteric sclera Mouth: no lip lesions, mucus membranes moist Cardiovascular: regular rate and rhythm with normal S1S2, no murmur, positive posterior tibial pulses bilaterally, and cap refill < 2 seconds. Lungs: Respirations even, regular, and unlabored on room air. Lungs CTA bilaterally, no rhonchi, no rales, no wheezing, and no accessory muscle usage. Abdominal: soft, nontender to palpation, no guarding, no appreciable organ omegaly Ext: ROM intact. No gross muscle atrophy, no edema, no contractures Neuro: Speech clear, face symmetrical and CN II-XII grossly intact with no noted focal neuro deficits Psych: Alert and oriented to person, place, time, and situation. Appropriate and pleasant affect. A total of 37 minutes of time were spent preparing this complex discharge summary. Pt was discharged on 05/03/22 at 4:07 PM Patient Condition at Discharge: Stable Plan - Discharge Summary Discharge Rx Participant: No New Discharge Prescriptions: Continue Glimepiride [Amaryl] 4 mg PO BID Latanoprost/Pf [Latanoprost 0.005% Eye Drop] 1 drop BOTH EYES HS Atorvastatin [Lipitor] 40 mg PO HS Aspirin [Dewey Aspirin EC] 81 mg PO BID Isosorbide Mononitrate ER [Imdur] 30 mg PO DAILY #30 tab.er.24h Nitroglycerin Sl Tabs [Nitrostat] 0.4 mg SUBLINGUAL Q5M PRN #10 tab PRN Reason: Chest Pain Potassium Chloride ER [K-Dur 10] 10 meq PO DAILY Brimonidine Tartrate [Alphagan P 0.2% Ophth Soln] 1 drops BOTH EYES BID Docusate [Colace] 100 mg PO DAILY Cholecalciferol [Vitamin D3 (25 Mcg = 1000 Iu)] 25 mcg PO DAILY Vitamin E 400 unit PO DAILY Biotin 5 mg PO DAILY Furosemide [Lasix] 40 mg PO DAILY Losartan [Cozaar] 50 mg PO DAILY Zinc 50 mg PO DAILY Vitamin B Complex 1 cap PO DAILY Co Q-10 100mg 100 mg PO DAILY Discharge Medication List Glimepiride [Amaryl] 4 mg PO BID 03/08/16 [History] Aspirin [Dewey Aspirin EC] 81 mg PO BID 12/10/18 [History] Atorvastatin [Lipitor] 40 mg PO HS 12/10/18 [History] Latanoprost/Pf [Latanoprost 0.005% Eye Drop] 1 drop BOTH EYES HS 12/10/18 [History] Isosorbide Mononitrate ER [Imdur] 30 mg PO DAILY #30 tab.er.24h 12/12/18 [Rx] Nitroglycerin Sl Tabs [Nitrostat] 0.4 mg SUBLINGUAL Q5M PRN #10 tab 12/12/18 [Rx] Biotin 5 mg PO DAILY 05/02/22 [History] Brimonidine Tartrate [Alphagan P 0.2% Ophth Soln] 1 drops BOTH EYES BID 05/02/22 [History] Cholecalciferol [Vitamin D3 (25 Mcg = 1000 Iu)] 25 mcg PO DAILY 05/02/22 [History] Co Q-10 100mg 100 mg PO DAILY 05/02/22 [History] Docusate [Colace] 100 mg PO DAILY 05/02/22 [History] Furosemide [Lasix] 40 mg PO DAILY 05/02/22 [History] Losartan [Cozaar] 50 mg PO DAILY 05/02/22 [History] Potassium Chloride ER [K-Dur 10] 10 meq PO DAILY 05/02/22 [History] Vitamin B Complex 1 cap PO DAILY 05/02/22 [History] Vitamin E 400 unit PO DAILY 05/02/22 [History] Zinc 50 mg PO DAILY 05/02/22 [History] Follow up Appointment(s)/Referral(s): Trung Hatch DO [Primary Care Provider] - 1-2 days Lito Levine MD [STAFF PHYSICIAN] - 05/18/22 2:30 pm José Miguel Carmichael DO [STAFF PHYSICIAN] - 1 Week Ambulatory/Diagnostic Orders: Comprehensive Metabolic Panel [LAB.AMB] Time Frame: 3 Days, Location: None Selected Activity/Diet/Wound Care/Special Instructions: Activity: As tolerated. Take breaks as needed. Diet: Heart healthy and carb consistent diet. Avoid salts, or foods with hidden salts such as canned or boxed foods and frozen dinners. Extra salt makes your heart work harder and traps the fluid in your body for longer. Special Instructions: Take all of your medications as directed and remember to keep all of your doctor's appointments and follow-up as needed. You will need to follow up with your primary doctor, Dr. Hatch in 1-2 days and cardiology, Dr. Levine in 1 week. As requested I am giving you the information for a backhoe operator, Dr. Carmichael for monitoring of your chronic kidney disease. It is also highly recommended that you have repeat labs drawn in 3 days to follow up with your mild hyponatremia and renal function. I have resumed your diuretic with Lasix. Please ensure you're adequately hydrating herself with oral intake of water. Thank you for allowing us to participate in your care, it was truly a pleasure having you for our patient!!! Discharge Disposition: HOME SELF-CARE
[2022-05-03 16:51] LABS: Glucose,Whole Blood 169 mg/dL (70-110)
== END 2022-05-03 17:54 | disposition home or self-care (01) ==
LOC: EC 15:12 → 6NMEDSUR 21:28
PROVIDERS: ADMIT Internal Medicine; ATTEND Internal Medicine
DX: R06.09 Other forms of dyspnea (principal); N17.9 Acute kidney failure, unspecified; E87.1 Hypo-osmolality and hyponatremia; R79.89 Other specified abnormal findings of blood chemistry; I12.9 Hypertensive chronic kidney disease with stage 1 through stage 4 chronic kidney disease, or unspecified chronic kidney disease; N18.9 Chronic kidney disease, unspecified; R94.31 Abnormal electrocardiogram [ECG] [EKG]; I25.10 Atherosclerotic heart disease of native coronary artery without angina pectoris; E11.22 Type 2 diabetes mellitus with diabetic chronic kidney disease; E78.5 Hyperlipidemia, unspecified; I27.20 Pulmonary hypertension, unspecified; I08.3 Combined rheumatic disorders of mitral, aortic and tricuspid valves; E11.319 Type 2 diabetes mellitus with unspecified diabetic retinopathy without macular edema; M79.89 Other specified soft tissue disorders; R05.9 Cough, unspecified; E07.9 Disorder of thyroid, unspecified; H40.9 Unspecified glaucoma; L65.9 Nonscarring hair loss, unspecified; F32.A Depression, unspecified; F41.9 Anxiety disorder, unspecified; Z20.822 Contact with and (suspected) exposure to COVID-19; Z79.84 Long term (current) use of oral hypoglycemic drugs; Z79.82 Long term (current) use of aspirin; Z79.899 Other long term (current) drug therapy; Z88.0 Allergy status to penicillin; Z88.5 Allergy status to narcotic agent; Z88.8 Allergy status to other drugs, medicaments and biological substances; Z91.048 Other nonmedicinal substance allergy status; Z87.440 Personal history of urinary (tract) infections; Z90.49 Acquired absence of other specified parts of digestive tract; Z95.1 Presence of aortocoronary bypass graft; Z90.710 Acquired absence of both cervix and uterus; Z95.5 Presence of coronary angioplasty implant and graft; Z98.84 Bariatric surgery status; Z98.890 Other specified postprocedural states; Z82.49 Family history of ischemic heart disease and other diseases of the circulatory system; Z80.9 Family history of malignant neoplasm, unspecified
CPT/HCPCS: 96372; 99285; 36415; 93005; 93306; 85379; 83880; 80053; 83605; 83735; 84484 ×2; 85025; 85610; 85730; 87502; 87635; 71046; 93979; 78582; G0378 ×2; A9540; A9567; J1644